=== PATIENT | female | born 1985 | race Caucasian/White ===

== ENCOUNTER 2017-04-03 06:46 | Emergency (ER) | payer BC, OTHER ==
[2017-04-03 06:54] VITALS: BP 134/63; PULSE 89; RESP 20; TEMP 97.7
[2017-04-03] MEDS ORDERED: ACET/COD 300 MG/30 MG STARTER PACK 6 TAB BTL PO STA (08:03)
--- NOTE | 2017-04-03 08:13 | ED ---
General Adult HPI - General Chief complaint: ENT Stated complaint: dental pain Time Seen by Provider: 04/03/17 07:30 Source: patient, RN notes reviewed Mode of arrival: ambulatory Limitations: no limitations - History of Present Illness Initial comments: Patient is a pleasant 31-year-old female presenting to the emergency department complaining of dental pain. Onset was yesterday. Symptoms have gradually worsened since that time. No fever. Patient has a known fractured tooth of her right upper molar. No recent injury. Patient has not seen a dentist recently. - Related Data Home Medications Medication Instructions Recorded Confirmed Ibuprofen [Motrin] 400 mg PO Q6HR PRN 04/03/17 04/03/17 Previous Rx's Medication Instructions Recorded Acetaminophen-Codeine 300-30mg 1 each PO Q4H PRN #8 tablet 04/03/17 [Tylenol #3] Penicillin V Potassium [Pen Vee K] 500 mg PO QID #40 tab 04/03/17 Allergies Allergy/AdvReac Type Severity Reaction Status Date / Time No Known Allergies Allergy Verified 04/03/17 07:12 Review of Systems ROS Statement: Those systems with pertinent positive or pertinent negative responses have been documented in the HPI. ROS Other: All systems not noted in ROS Statement are negative. Constitutional: Denies: fever Eyes: Denies: eye pain ENT: Reports: dental pain. Denies: ear pain Respiratory: Denies: cough Cardiovascular: Denies: chest pain Endocrine: Denies: fatigue Gastrointestinal: Denies: abdominal pain Genitourinary: Denies: dysuria Musculoskeletal: Denies: back pain Skin: Denies: rash Neurological: Denies: weakness Past Medical History Past Medical History: No Reported History History of Any Multi-Drug Resistant Organisms: MRSA Date of last positivie culture/infection: 2012 MDRO Source:: abd Past Surgical History: Section Additional Past Surgical History / Comment(s): liver biopsy Past Psychological History: No Psychological Hx Reported Smoking Status: Current every day smoker Past Alcohol Use History: None Reported Past Drug Use History: None Reported General Exam Limitations: no limitations General appearance: alert, in no apparent distress Head exam: Present: atraumatic Eye exam: Present: normal appearance, PERRL ENT exam: Present: normal oropharynx, other (Right upper posterior molar with fracture and tenderness. No definite swelling or definite abscess. No erythema.) Neck exam: Present: normal inspection Respiratory exam: Present: normal lung sounds bilaterally Cardiovascular Exam: Present: regular rate, normal rhythm Extremities exam: Present: normal inspection Neurological exam: Present: alert Psychiatric exam: Present: normal affect, normal mood Skin exam: Present: normal color Course Vital Signs 04/03/17 06:52 Temperature 97.7 F Pulse Rate 89 Respiratory 20 Rate Blood Pressure 134/63 O2 Sat by Pulse 100 Oximetry Disposition Clinical Impression: Dentalgia Disposition: HOME SELF-CARE Condition: Stable Instructions: Toothache (ED) Additional Instructions: Please follow-up with the dentist as soon as possible. Return for swelling, fevers, not tolerating liquids, difficulty breathing, worsening symptoms or other concerns. Prescriptions: Acetaminophen-Codeine 300-30mg [Tylenol #3] 1 each PO Q4H PRN #8 tablet PRN Reason: Pain Penicillin V Potassium [Pen Vee K] 500 mg PO QID #40 tab Referrals: Donald Brizuela DO [Primary Care Provider] - 1-2 days Time of Disposition: 08:14
== END 2017-04-03 08:27 | disposition home or self-care (01) ==
LOC: EC 06:46 → MERGE 06:46 → EC 08:27
DX: K08.89 Other specified disorders of teeth and supporting structures (principal); F17.200 Nicotine dependence, unspecified, uncomplicated
CPT/HCPCS: 99282

== ENCOUNTER 2020-06-14 18:32 | Emergency (ER) | payer BC, OTHER ==
[2020-06-14] MEDS ORDERED: LIDOCAINE 1% INJ 10MG/ML (20 ML MDV) SQ ONE (19:08)
[2020-06-14] MEDS ORDERED: DIPH,PERTUS(ACELL)TETVAC-LF 0.5 ML VIAL IM ONE (19:08)
[2020-06-14] MEDS ORDERED: ACET/COD 300 MG/30 MG STARTER PACK 6 TAB BTL PO STA (19:11)
[2020-06-14] MEDS ORDERED: BACITRACIN OINT 1 EACH PACKET TOPICAL ONE (19:57)
--- NOTE | 2020-06-14 20:07 | ED ---
General Adult HPI - General Chief complaint: Skin/Abscess/Foreign Body Stated complaint: Finger laceration Time Seen by Provider: 06/14/20 19:01 Source: patient Mode of arrival: ambulatory Limitations: no limitations - History of Present Illness Initial comments: 34-year-old female presents to emergency department this evening with complaints of laceration to her left thumb. Patient states she was attempting to separate frozen hamburger patties using a kitchen knife when it slipped and cut her thumb. Reports she felt dizzy and nauseous at the site of blood prior to arrival, but states those symptoms have since resolved. Denies difficulty with range of motion or sensation. Denies any other injuries. Patient denies any headache, neck pain, back pain, chest pain, shortness of breath,weakness, abdominal pain, vomiting, or difficulties with bowel movements or urination. - Related Data Home Medications Medication Instructions Recorded Confirmed Ibuprofen [Motrin] 400 mg PO Q6HR PRN 04/03/17 04/03/17 Previous Rx's Medication Instructions Recorded Acetaminophen-Codeine 300-30mg 1 each PO Q4H PRN #8 tablet 04/03/17 [Tylenol #3] Penicillin V Potassium [Pen Vee K] 500 mg PO QID #40 tab 04/03/17 Allergies Allergy/AdvReac Type Severity Reaction Status Date / Time No Known Allergies Allergy Verified 06/14/20 18:38 Review of Systems ROS Statement: Those systems with pertinent positive or pertinent negative responses have been documented in the HPI. ROS Other: All systems not noted in ROS Statement are negative. Past Medical History Past Medical History: No Reported History History of Any Multi-Drug Resistant Organisms: MRSA Date of last positivie culture/infection: 2012 MDRO Source:: abd Past Surgical History: Section Additional Past Surgical History / Comment(s): liver biopsy Past Psychological History: No Psychological Hx Reported Smoking Status: Current every day smoker Past Alcohol Use History: None Reported Past Drug Use History: None Reported General Exam Limitations: no limitations (Well-developed, well-nourished female in no acute distress. Initial temperature 97.8F, pulse 103, respirations 20, blood pressure 130/72, pulse ox 100% on room air) General appearance: alert, in no apparent distress Respiratory exam: Present: normal lung sounds bilaterally. Absent: respiratory distress, wheezes, rales, rhonchi, stridor Cardiovascular Exam: Present: regular rate, normal rhythm, normal heart sounds. Absent: systolic murmur, diastolic murmur, rubs, gallop, clicks Left Hand Wrist exam: Present: laceration (3.5cm linear laceration to the distal portion of the palmar surface of the left thumb; extends to border of nailbed but does not intrude) Neuro motor exam: Present: thumb opposition intact Vascular: Present: normal capillary refill, radial pulse, brachial pulse. Absent: vascular compromise Neurological exam: Present: alert, oriented X3, CN II-XII intact Psychiatric exam: Present: normal affect, normal mood Skin exam: Present: warm, dry, intact, normal color. Absent: rash Course Vital Signs 06/14/20 06/14/20 18:34 20:13 Temperature 97.8 F 98.0 F Pulse Rate 103 H 98 Respiratory 20 16 Rate Blood Pressure 138/72 137/91 O2 Sat by Pulse 100 98 Oximetry Procedures - Laceration Laceration #1 Consent Obtained: verbal consent Indication: laceration Site: hand (left thumb, palmar surface) Size (cm): 4 Description: linear Depth: simple, single layer Anesthetic Used: lidocaine 1% Anesthesia Technique: nerve block Amount (mls): 3 Pre-repair: wound explored, irrigated extensively Type of Sutures: nylon Size of Sutures: 5-0 Number of Sutures: 7 Technique: simple, interrupted Patient Tolerated Procedure: well Medical Decision Making - Medical Decision Making 34-year-old female presents with a 3.5 cm laceration on the distal left thumb, palmar surface extending around to the radial edge of the left thumbnail but not intruding on the nailbed. Distal sensation and active range of motion remain intact. Bleeding controlled prior to arrival. Last tetanus shot more than 7 years ago. Digital block to the left successfully anesthetized site for wound repair. 7 sutures placed; wound easily approximated. Bacitracin dressing applied and wound care instructions reviewed. Discussed suture removal in 7 days. Encouraged to follow-up with her primary care provider for recheck in 1-2 days. Instructed to return to the emergency department with any significant increased redness, foul smelling drainage from the wound, or development of fever. Patient verbalizes understanding and agrees with this plan. Disposition Clinical Impression: Laceration of thumb without damage to nail, Laceration of thumb, left Disposition: HOME SELF-CARE Condition: Good Instructions (If sedation given, give patient instructions): Care For Your Stitches (ED), Laceration (ED) Additional Instructions: Keep wound clean, dry, and covered for the first 48 hours. Daily dressing changes. Monitor for signs of infection including increased redness, foul smelling drainage, or fever. Sutures to be removed in 7 days. Follow-up with your family doctor for a recheck in the next 1-2 days. Return to the emergency Department with any new, worsening, or concerning symptoms. Is patient prescribed a controlled substance at d/c from ED?: No Referrals: Donald Brizuela DO [Primary Care Provider] - 1-2 days Time of Disposition: 20:00
[2020-06-14 20:14] VITALS: BP 137/91; PULSE 98; RESP 16; TEMP 98
== END 2020-06-14 20:14 | disposition home or self-care (01) ==
LOC: EC 18:32
DX: S61.012A Laceration without foreign body of left thumb without damage to nail, initial encounter (principal); F17.200 Nicotine dependence, unspecified, uncomplicated; Z23 Encounter for immunization; W26.0XXA Contact with knife, initial encounter; Y93.G3 Activity, cooking and baking; Y92.000 Kitchen of unspecified non-institutional (private) residence as the place of occurrence of the external cause; Z86.14 Personal history of Methicillin resistant Staphylococcus aureus infection
CPT/HCPCS: 90715; 99283; 90471; 12002; J2001

== ENCOUNTER 2020-12-28 08:01 | Day surgery (SDC) | payer OTHER ==
[2020-12-25 08:53] VITALS: BMI 28.2
[~2020-12-28 08:01] MED LIST: ACETAMINOPHEN TAB 500 MG TAB PO PRN; DEXAMETHASONE SOD PHOSPHATE 4 MG/ML 1 ML VIAL IV ONE; HEPARIN SODIUM,PORCINE/PF 5,000 UNIT/0.5 ML SYRINGE SQ PRN; LACTATED RINGERS 1,000 ML IV SCH; MIDAZOLAM 2 MG/2 ML VIAL IV PRN; ONDANSETRON 4 MG/2 ML VIAL IVP ONE; SCOPOLAMINE 1.5MG/72HR PATCH TRANSDERM ONE
--- NOTE | 2020-12-28 08:15 | P.GSHP ---
History of Present Illness H&P Date: 12/28/20 Chief Complaint: Right upper quadrant pain This a 35-year-old female who presents today for laparoscopic cholecystectomy. Patient underwent a right quadrant pain. She was found have gallstones. Past Medical History Past Medical History: GERD/Reflux Additional Past Medical History / Comment(s): Hiatal Hernia. History of Any Multi-Drug Resistant Organisms: MRSA Date of last positivie culture/infection: 2012 MDRO Source:: abd Past Surgical History: Section, Tubal Ligation Additional Past Surgical History / Comment(s): Liver biopsy, EGD. Past Anesthesia/Blood Transfusion Reactions: No Reported Reaction, Motion Sickness Past Psychological History: No Psychological Hx Reported Smoking Status: Current every day smoker Past Alcohol Use History: Occasional Additional Past Alcohol Use History / Comment(s): Has been smoking for 15 yrs, 3/4 PPD. Past Drug Use History: Marijuana Additional Drug Use History / Comment(s): Uses Marijuana once in awhile. Aware no use 24 hrs prior to procedure. - Past Family History Father Family Medical History: Cancer Additional Family Medical History / Comment(s): Lung Cancer. Medications and Allergies Home Medications Medication Instructions Recorded Confirmed Type Acetaminophen [Tylenol] 1,000 mg PO Q4-6H PRN 12/25/20 12/25/20 History Allergies Allergy/AdvReac Type Severity Reaction Status Date / Time No Known Allergies Allergy Verified 12/25/20 08:35 Surgical - Exam - General well developed, well nourished, no distress - Eyes PERRL - ENT normal pinna - Neck no masses - Respiratory normal expansion - Cardiovascular Rhythm: regular - Abdomen Abdomen: soft, non tender Assessment and Plan Assessment: Cholelithiasis Right quadrant pain We'll perform laparoscopic cholecystectomy
[2020-12-28] MEDS ORDERED: LIDOCAINE 1% (10MG/ML) FOR IV START INTRADERMA ONE (08:33)
[2020-12-28] MEDS ORDERED: fentaNYL (PF) 50 MCG/ML 2 ML AMP ONE (08:52)
[2020-12-28] MEDS ORDERED: MIDAZOLAM 2 MG/2 ML VIAL ONE (08:52)
[2020-12-28] MEDS ORDERED: GLYCOPYRROLATE 0.2 MG/ML 2 ML VIAL ONE (08:52)
[2020-12-28] MEDS ORDERED: LIDOCAINE 1% INJ 10MG/ML (20 ML MDV) ONE (08:52)
[2020-12-28] MEDS ORDERED: ROCURONIUM 10 MG/ML (5 ML VIAL) IV ONE (08:52)
[2020-12-28] MEDS ORDERED: SUCCINYLCHOLINE CHLORIDE 100 MG/5 ML SYR IV ONE (08:52)
[2020-12-28] MEDS ORDERED: PHENYLEPHRINE-0.9% NACL SYG 1,000 MCG/10 ML SYRINGE ONE (08:52)
[2020-12-28] MEDS ORDERED: NEOSTIGMINE 1 MG/ML 10 ML VIAL ONE (08:52)
[2020-12-28] MEDS ORDERED: PROPOFOL 10 MG/ML 20 ML VIAL IV ONE (08:52)
[2020-12-28] MEDS ORDERED: HYDROmorphone (PF) 1 MG/ML ONE (08:52)
[2020-12-28] MEDS ORDERED: BUPIVACAINE (PF) 0.25% 30 ML VIAL SQ ONE (09:23)
[2020-12-28 09:58] VITALS: TEMP 96.9
[2020-12-28] MEDS: HYDROmorphone 0.5 MG/0.5 ML SYRINGE IVP PRN ×3 (10:01→10:32)
--- NOTE | 2020-12-28 10:14 | P.OP ---
Date of Procedure: 12/28/20 Preoperative Diagnosis: Cholecystitis Postoperative Diagnosis: Cholecystitis Procedure(s) Performed: Laparoscopic cholecystectomy Anesthesia: ARLENE Surgeon: Kareem Carpenter Estimated Blood Loss (ml): 5 Pathology: other (Gallbladder) Condition: stable Disposition: PACU Description of Procedure: The patient was placed on the operating table. The patient received a general endotracheal tube anesthesia. The patients abdomen was prepped and draped in the usual sterile fashion. Through an infraumbilical stab incision, the fascia of the anterior abdominal wall was grasped with a pair of Kochers and then the Veress needle was placed in the peritoneal cavity. Position of the Veress needle was confirmed with positive drop test. The abdomen was then insufflated. After adequate insufflation, the 10 mm trocar was placed in the peritoneal cavity. Following this the laparoscope was placed in the peritoneal cavity. The patient was placed in the head-up, right side up position and then a 5 mm trocar was placed in the right lateral and right subcostal position under direct visualization. A 8 mm trocar was placed in the epigastric position. The gallbladder was grasped in the fundus and infundibulum. Traction on the gallbladder was placed in the lateral and the cephalad positions. The triangle of Calot was visualized.. The cystic duct was bluntly dissected until the union of the cystic duct and common bile duct was seen. A critical view of safety was achieved. The cystic duct was then divided and sealed with the Harmonic scissors. A PDS Endoloop was then placed throughout the cystic duct stump. The cystic artery divided and sealed with the Harmonic scissors. The gallbladder was then removed from the liver bed using Harmonic scissors. The gallbladder was then extracted through the epigastric port site. Operative field was checked for any bleeding spots and Harmonic scissors was used to coagulate the liver bed. The abdomen was irrigated. The trocars were removed. The skin was closed using interrupted 3-0 Vicryl suture. Dermabond dressing were applied. The patient tolerated the procedure well.
[2020-12-28] MEDS ORDERED: ONDANSETRON 4 MG/2 ML VIAL IVP ONE (10:17)
[2020-12-28] MEDS ORDERED: LACTATED RINGERS 1,000 ML IV ONE (10:20)
[2020-12-28 10:41] VITALS: RESP 16
[2020-12-28] MEDS ORDERED: oxyCODONE-APAP 5-325MG 1 EACH TAB ONE (10:48)
[2020-12-28] MEDS ORDERED: oxyCODONE-APAP 5-325MG 1 EACH TAB PO ONE (10:50)
[2020-12-28 10:59] VITALS: BP 136/84; PULSE 87
== END 2020-12-28 11:35 | disposition home or self-care (01) ==
LOC: OR 08:01
PROVIDERS: ATTEND Surgery
DX: K80.10 Calculus of gallbladder with chronic cholecystitis without obstruction (principal); K21.9 Gastro-esophageal reflux disease without esophagitis; K44.9 Diaphragmatic hernia without obstruction or gangrene; Z86.14 Personal history of Methicillin resistant Staphylococcus aureus infection; Z98.891 History of uterine scar from previous surgery; Z98.51 Tubal ligation status; K76.9 Liver disease, unspecified; F17.210 Nicotine dependence, cigarettes, uncomplicated; Z80.1 Family history of malignant neoplasm of trachea, bronchus and lung
CPT/HCPCS: 81025; 88304; 47562; J2250; J1100; J2710; J0690; J2405; J2001; J3010; J1170 ×2; J2370; J0330; J2704; J1644

== ENCOUNTER → 2021-01-02 | Outpatient (CLI) | payer OTHER ==
[2021-01-02 23:37] LABS: HCT 44.5 % (37.2-46.3); HGB 15.1 g/dL (12.0-15.0); MCH 31.7 pg (27.0-32.0); MCHC 33.9 g/dL (32.0-37.0); MCV 93.3 fL (80.0-97.0); Mean Platelet Volume 11.3 fL (9.5-12.2); Platelet Count 478 X 10*3/uL (140-440); RBC 4.77 X 10*6/uL (4.10-5.20); RDW 14.8 % (11.5-14.5); WBC 15.84 X 10*3/uL (4.50-10.00)
[2021-01-03 16:56] LABS: African American GFR (CKD) 75.3 (60.0-200.0); Albumin 4.6 g/dL (3.80-4.90); Albumin/Globulin Ratio 1.59 (1.60-3.17); Anion Gap 27.1 mmol/L (4.00-12.00); BUN/Creat Ratio 34.55 Ratio (12.00-20.00); Calcium 9.1 mg/dL (8.7-10.3); Carbon Dioxide 15.9 mmol/L (21.6-31.8); Globulin 2.9 g/dL (1.6-3.3); Potassium 3.9 mmol/L (3.5-5.5); Total Protein 7.5 g/dL (6.2-8.2)
== END | disposition home or self-care (01) ==
LOC: LABWHC1 15:25
PROVIDERS: ATTEND Surgery
DX: R10.9 Unspecified abdominal pain (principal)
CPT/HCPCS: 36415; 80053; 85027

== ENCOUNTER → 2021-01-07 | Outpatient (CLI) | payer OTHER ==
[2021-01-07 19:07] LABS: HCT 36.9 % (37.2-46.3); HGB 12.7 g/dL (12.0-15.0); MCH 31.6 pg (27.0-32.0); MCHC 34.4 g/dL (32.0-37.0); MCV 91.8 fL (80.0-97.0); Mean Platelet Volume 10.6 fL (9.5-12.2); Platelet Count 726 X 10*3/uL (140-440); RBC 4.02 X 10*6/uL (4.10-5.20); RDW 14.7 % (11.5-14.5); WBC 18.46 X 10*3/uL (4.50-10.00)
[2021-01-07 22:12] LABS: African American GFR (CKD) 130.1 (60.0-200.0); Albumin/Globulin Ratio 1.67 (1.60-3.17); BUN/Creat Ratio 24.29 Ratio (12.00-20.00); Globulin 2.4 g/dL (1.6-3.3); Non-African American GFR(CKD) 112.3 (60.0-200.0); Potassium 4.2 mmol/L (3.5-5.5); Total Bilirubin 3.7 mg/dL (0.2-1.2); Total Protein 6.4 g/dL (6.2-8.2)
== END | disposition home or self-care (01) ==
LOC: LABWHC1 13:09
PROVIDERS: ATTEND Surgery
DX: K80.50 Calculus of bile duct without cholangitis or cholecystitis without obstruction (principal)
CPT/HCPCS: 36415; 80053; 85027

== ENCOUNTER → 2021-01-16 | Outpatient (CLI) | payer OTHER ==
[2021-01-16 20:45] LABS: HCT 35.7 % (37.2-46.3); HGB 10.8 g/dL (12.0-15.0); MCH 30.3 pg (27.0-32.0); MCHC 30.3 g/dL (32.0-37.0); MCV 100.3 fL (80.0-97.0); Mean Platelet Volume 9.7 fL (9.5-12.2); Platelet Count 823 X 10*3/uL (140-440); RBC 3.56 X 10*6/uL (4.10-5.20); RDW 14.7 % (11.5-14.5); WBC 14.51 X 10*3/uL (4.50-10.00)
== END | disposition home or self-care (01) ==
LOC: LABWHC1 11:18
PROVIDERS: ATTEND Surgery
DX: K80.50 Calculus of bile duct without cholangitis or cholecystitis without obstruction (principal)
CPT/HCPCS: 36415; 85027

== ENCOUNTER → 2021-01-21 | Outpatient (CLI) | payer OTHER ==
[2021-01-21 19:15] LABS: HGB 10.8 g/dL (12.0-15.0); MCH 30.3 pg (27.0-32.0); MCHC 30.9 g/dL (32.0-37.0); Mean Platelet Volume 10.2 fL (9.5-12.2); Platelet Count 675 X 10*3/uL (140-440); RBC 3.57 X 10*6/uL (4.10-5.20); RDW 14.9 % (11.5-14.5); WBC 12.27 X 10*3/uL (4.50-10.00)
[2021-01-21 19:51] LABS: African American GFR (CKD) 136.9 (60.0-200.0); Albumin 3.6 g/dL (3.80-4.90); Albumin/Globulin Ratio 1.33 (1.60-3.17); Anion Gap 7.6 mmol/L (4.00-12.00); BUN/Creat Ratio 13.33 Ratio (12.00-20.00); Calcium 8.7 mg/dL (8.7-10.3); Carbon Dioxide 26.4 mmol/L (21.6-31.8); Globulin 2.7 g/dL (1.6-3.3); Non-African American GFR(CKD) 118.1 (60.0-200.0); Potassium 4.4 mmol/L (3.5-5.5); Total Bilirubin 0.9 mg/dL (0.2-1.2); Total Protein 6.3 g/dL (6.2-8.2)
== END | disposition home or self-care (01) ==
LOC: LABWHC1 14:11
PROVIDERS: ATTEND Surgery
DX: K80.50 Calculus of bile duct without cholangitis or cholecystitis without obstruction (principal)
CPT/HCPCS: 36415; 80053; 85027

== ENCOUNTER 2021-01-29 10:43 | Inpatient (IN) | payer OTHER ==
[2021-01-29 12:58] LABS: Anisocytosis Slight; Basophils # (A) 0.1 k/uL (0-0.2); Basophils % (A) 0 %; Eosinophils # (A) 0.3 k/uL (0-0.7); Eosinophils % (A) 2 %; HCT 35.3 % (34.0-46.0); HGB 10.9 gm/dL (11.4-16.0); Hypochromasia Moderate; Lymphocytes # (A) 1.6 k/uL (1.0-4.8); Lymphocytes % (A) 11 %; MCH 28.7 pg (25.0-35.0); MCHC 30.9 g/dL (31.0-37.0); MCV 92.7 fL (80.0-100.0); Mean Platelet Volume 7.7; Monocytes # (A) 0.7 k/uL (0-1.0); Monocytes % (A) 5 %; Neutrophils # (A) 11.4 k/uL (1.3-7.7); Neutrophils % (A) 80 %; RBC 3.81 m/uL (3.80-5.40); RDW 16.1 % (11.5-15.5); WBC 14.1 k/uL (3.8-10.6)
[2021-01-29 13:00] LABS: Platelet Count 1038 k/uL (150-450)
[2021-01-29 13:16] LABS: ALT 29 U/L (4-34); AST 51 U/L (14-36); African American GFR (CKD) >90 (>60 ml/min/1.73 sqM); Albumin 3.7 g/dL (3.5-5.0); Alkaline Phosphatase 285 U/L (38-126); Amylase 39 U/L (30-110); Anion Gap 12 mmol/L; Blood Urea Nitrogen 10 mg/dL (7-17); Calcium 9.8 mg/dL (8.4-10.2); Carbon Dioxide 24 mmol/L (22-30); Chloride 102 mmol/L (98-107); Glucose 100 mg/dL (74-99); Lipase 45 U/L (23-300); Non-African American GFR(CKD) >90 (>60 ml/min/1.73 sqM); Potassium 4.8 mmol/L (3.5-5.1); Sodium 138 mmol/L (137-145); Total Bilirubin 0.8 mg/dL (0.2-1.3); Total Protein 7.3 g/dL (6.3-8.2)
[2021-01-29] MEDS ORDERED: ONDANSETRON 4 MG/2 ML VIAL IVP STA (13:54)
[2021-01-29] MEDS ORDERED: MORPHINE SULFATE 4 MG/ML SYRINGE IVP STA (13:54)
[2021-01-29 13:59] LABS: Amorphous Sediment,Urine Many /hpf; Appearance,Urine Turbid (Clear); Bacteria,Urine Occasional /hpf; Bilirubin,Urine 1+ (Negative); Blood,Urine Moderate (Negative); Color,Urine Light Brown; Glucose,Urine (UA) Negative (Negative); Ketones,Urine Negative (Negative); Leukocyte Esterase,Urine Small (Negative); Mucus,Urine Many /hpf; Nitrite,Urine Negative (Negative); Protein,Urine 1+ (Negative); RBC,Urine 3 /hpf (0-5); Specific Gravity,Urine 1.042 (1.001-1.035); Squamous Epithelial Cell,Urine 3 /hpf (0-4); WBC,Urine 5 /hpf (0-5)
--- NOTE | 2021-01-29 14:39 | ED ---
General Adult HPI - General Chief complaint: Back Pain/Injury Stated complaint: post galbladder surgery pain Time Seen by Provider: 01/29/21 13:36 Source: patient, RN notes reviewed Mode of arrival: ambulatory Limitations: no limitations - History of Present Illness Initial comments: 35-year-old female with a past medical history of GERD, hiatal hernia, tubal ligation, cholecystectomy on December 28 presents to the emergency room for a chief complaint of right back and right abdominal pain. Patient reports this has been ongoing since her surgery. States that it seems to be worsening. Patient reports that she has been seeing her surgeon for this who was initially was concerned she may have a stone in the ducts however her lab work improved in the no longer felt this was the case. Patient states throughout the weekend the pain worsened to the point where she was prompted to come to the emergency room. She denies nausea vomiting diarrhea.Patient has no other complaints at this time including shortness of breath, chest pain, nausea or vomiting, headache, or visual changes. - Related Data Home Medications Medication Instructions Recorded Confirmed Acetaminophen Tab [Tylenol Tab] 1,000 mg PO Q6H PRN 01/29/21 01/29/21 Wheat Dextrin [Benefiber] 2 tsp PO HS 01/29/21 01/29/21 Allergies Allergy/AdvReac Type Severity Reaction Status Date / Time codeine AdvReac Nausea & Verified 01/29/21 17:01 Vomiting Review of Systems ROS Statement: Those systems with pertinent positive or pertinent negative responses have been documented in the HPI. ROS Other: All systems not noted in ROS Statement are negative. Past Medical History Past Medical History: GERD/Reflux Additional Past Medical History / Comment(s): Hiatal Hernia. History of Any Multi-Drug Resistant Organisms: MRSA Date of last positivie culture/infection: 2012 MDRO Source:: abd Past Surgical History: Section, Cholecystectomy, Tubal Ligation Additional Past Surgical History / Comment(s): Liver biopsy, EGD. Past Anesthesia/Blood Transfusion Reactions: No Reported Reaction, Motion Sickness Past Psychological History: No Psychological Hx Reported Smoking Status: Current every day smoker Past Alcohol Use History: Occasional Past Drug Use History: Marijuana - Past Family History Father Family Medical History: Cancer Additional Family Medical History / Comment(s): Lung Cancer. General Exam Limitations: no limitations General appearance: alert, in no apparent distress Head exam: Present: atraumatic, normocephalic, normal inspection Eye exam: Present: normal appearance, PERRL, EOMI. Absent: scleral icterus, co njunctival injection, periorbital swelling ENT exam: Present: normal exam, mucous membranes moist Neck exam: Present: normal inspection, full ROM. Absent: tenderness, meningismus, lymphadenopathy Respiratory exam: Present: normal lung sounds bilaterally. Absent: respiratory distress, wheezes, rales, rhonchi, stridor Cardiovascular Exam: Present: regular rate, normal rhythm, normal heart sounds. Absent: systolic murmur, diastolic murmur, rubs, gallop, clicks GI/Abdominal exam: Present: soft, tenderness (RLQ, RUQ), normal bowel sounds. Absent: distended, guarding, rebound, rigid Back exam: Present: CVA tenderness (R) Course Vital Signs 01/29/21 01/29/21 11:33 13:06 Temperature 98.1 F Pulse Rate 120 H 116 H Respiratory 16 16 Rate Blood Pressure 106/67 123/75 O2 Sat by Pulse 98 96 Oximetry Medical Decision Making - Medical Decision Making Vitals are stable. Patient cardiac likely secondary to pain. CBC does show leukocytosis. This also reveals significant thrombocytopenia of 1038. I did speak with Orquidea from hematology who will see the patient either inpatient or outpatient depending on her course. CMP does show an elevated alkaline phosphatase of 285 and AST of 51. Otherwise unremarkable. Bilirubin is normal. Urinalysis unremarkable. Patient has a history of tubal ligation. CT abdomen and pelvis shows likely biloma, sub-capsular extension, abnormal collection within the pelvis, considering capsulated bile leak. Case discussed with Dr. Carpenter who will admit patient. He does request HIDA scan, Zosyn, a.m. labs, and after midnight, and consultation to [facility]. - Lab Data Result diagrams: 01/29/21 12:24 01/29/21 12:24 Lab Results 01/29/21 01/29/21 01/29/21 Range/Units 12:20 12:24 12:24 WBC (3.8-10.6) k/uL RBC (3.80-5.40) m/uL Hgb (11.4-16.0) gm/dL Hct (34.0-46.0) % MCV (80.0-100.0) fL MCH (25.0-35.0) pg MCHC (31.0-37.0) g/dL RDW (11.5-15.5) % Plt Count (150-450) k/uL MPV Neutrophils % % Lymphocytes % % Monocytes % % Eosinophils % % Basophils % % Neutrophils # (1.3-7.7) k/uL Lymphocytes # (1.0-4.8) k/uL Monocytes # (0-1.0) k/uL Eosinophils # (0-0.7) k/uL Basophils # (0-0.2) k/uL Hypochromasia Anisocytosis PT 10.4 (9.0-12.0) sec INR 1.0 (<1.2) APTT 24.4 (22.0-30.0) sec Sodium 138 (137-145) mmol/L Potassium 4.8 (3.5-5.1) mmol/L Chloride 102 (98-107) mmol/L Carbon Dioxide 24 (22-30) mmol/L Anion Gap 12 mmol/L BUN 10 (7-17) mg/dL Creatinine 0.52 (0.52-1.04) mg/dL Est GFR (CKD-EPI)AfAm >90 (>60 ml/min/1.73 sqM) Est GFR (CKD-EPI)NonAf >90 (>60 ml/min/1.73 sqM) Glucose 100 H (74-99) mg/dL Calcium 9.8 (8.4-10.2) mg/dL Total Bilirubin 0.8 (0.2-1.3) mg/dL AST 51 H (14-36) U/L ALT 29 (4-34) U/L Alkaline Phosphatase 285 H (38-126) U/L Total Protein 7.3 (6.3-8.2) g/dL Albumin 3.7 (3.5-5.0) g/dL Amylase 39 (30-110) U/L Lipase 45 (23-300) U/L Urine Color Light Brown Urine Appearance Turbid H (Clear) Urine pH 6.0 (5.0-8.0) Ur Specific [place] 1.042 H (1.001-1.035) Urine Protein 1+ H (Negative) Urine Glucose (UA) Negative (Negative) Urine Ketones Negative (Negative) Urine Blood Moderate H (Negative) Urine Nitrite Negative (Negative) Urine Bilirubin 1+ H (Negative) Urine Urobilinogen 3.0 (<2.0) mg/dL Ur Leukocyte Esterase Small H (Negative) Urine RBC 3 (0-5) /hpf Urine WBC 5 (0-5) /hpf Ur Squamous Epith Cells 3 (0-4) /hpf Amorphous Sediment Many H (None) /hpf Urine Bacteria Occasional H (None) /hpf Urine Mucus Many H (None) /hpf Urine HCG, Qual (Not Detectd) 01/29/21 01/29/21 Range/Units 12:24 12:24 WBC 14.1 H (3.8-10.6) k/uL RBC 3.81 (3.80-5.40) m/uL Hgb 10.9 L (11.4-16.0) gm/dL Hct 35.3 (34.0-46.0) % MCV 92.7 (80.0-100.0) fL MCH 28.7 (25.0-35.0) pg MCHC 30.9 L (31.0-37.0) g/dL RDW 16.1 H (11.5-15.5) % Plt Count 1038 H* (150-450) k/uL MPV 7.7 Neutrophils % 80 % Lymphocytes % 11 % Monocytes % 5 % Eosinophils % 2 % Basophils % 0 % Neutrophils # 11.4 H (1.3-7.7) k/uL Lymphocytes # 1.6 (1.0-4.8) k/uL Monocytes # 0.7 (0-1.0) k/uL Eosinophils # 0.3 (0-0.7) k/uL Basophils # 0.1 (0-0.2) k/uL Hypochromasia Moderate Anisocytosis Slight PT (9.0-12.0) sec INR (<1.2) APTT (22.0-30.0) sec Sodium (137-145) mmol/L Potassium (3.5-5.1) mmol/L Chloride (98-107) mmol/L Carbon Dioxide (22-30) mmol/L Anion Gap mmol/L BUN (7-17) mg/dL Creatinine (0.52-1.04) mg/dL Est GFR (CKD-EPI)AfAm (>60 ml/min/1.73 sqM) Est GFR (CKD-EPI)NonAf (>60 ml/min/1.73 sqM) Glucose (74-99) mg/dL Calcium (8.4-10.2) mg/dL Total Bilirubin (0.2-1.3) mg/dL AST (14-36) U/L ALT (4-34) U/L Alkaline Phosphatase (38-126) U/L Total Protein (6.3-8.2) g/dL Albumin (3.5-5.0) g/dL Amylase (30-110) U/L Lipase (23-300) U/L Urine Color Urine Appearance (Clear) Urine pH (5.0-8.0) Ur Specific [place] (1.001-1.035) Urine Protein (Negative) Urine Glucose (UA) (Negative) Urine Ketones (Negative) Urine Blood (Negative) Urine Nitrite (Negative) Urine Bilirubin (Negative) Urine Urobilinogen (<2.0) mg/dL Ur Leukocyte Esterase (Negative) Urine RBC (0-5) /hpf Urine WBC (0-5) /hpf Ur Squamous Epith Cells (0-4) /hpf Amorphous Sediment (None) /hpf Urine Bacteria (None) /hpf Urine Mucus (None) /hpf Urine HCG, Qual Not Detected (Not Detectd) Disposition Clinical Impression: Abdominal pain, Leukocytosis, Thrombocytosis, Bile leak, postoperative Disposition: ADMITTED IP TO THIS HOSP Is patient prescribed a controlled substance at d/c from ED?: No Referrals: None,Stated [Primary Care Provider] - 1-2 days Time of Disposition: 17:55
[2021-01-29 14:42] LABS: Partial Thromboplastin Time 24.4 sec (22.0-30.0); Prothrombin Time 10.4 sec (9.0-12.0)
--- NOTE | 2021-01-29 15:57 | CT ---
EXAMINATION TYPE: CT abdomen pelvis w con DATE OF EXAM: 01/29/2021 COMPARISON: None HISTORY: Right sided pain post op Heather in November 2020. CT DLP: 1110.3 mGycm Automated exposure control for dose reduction was used. TECHNIQUE: Helical acquisition of images from the lung bases through the pelvis have been completed. CONTRAST: Performed without Oral Contrast and with IV Contrast, patient injected with 100 mL of Isovue 300. FINDINGS: Within the pelvis there is a fluid collection 26 times the region of the cul-de-sac over th e uterus and superior to the bladder measuring approximately 19 cm in cephalad to caudal dimension by 18 cm in transverse dimension by 10 cm in AP dimension LUNG BASES: Basilar atelectatic changes are present, correlate to exclude pneumonia. AORTA: No significant abnormality is appreciated. LIVER/GB: There is a subcapsular fluid collection along anterior margin of the right lobe liver measu ring approximately 11 cm in transverse dimension by 19 cm in cephalad to caudal dimension by 8 cm in AP dimension extending from the level of the dome of the liver inferiorly to the inferior margin and extends laterally to the right lobe of the liver. At the level of the cholecystectomy. Some abnormal thickening of the cholecystectomy bed, shaggy appearance. PANCREAS: No significant abnormality is seen. SPLEEN: No significant abnormality is seen. ADRENALS: Right adrenal soft tissue mass measures approximately 2.2 cm.. KIDNEYS: No significant abnormality is seen. REPRODUCTIVE ORGANS: No significant abnormality is seen BOWEL: No significant abnormality is seen. FREE AIR: No Free Air visible. ASCITES: None visible. PELVIC ADENOPATHY: None visualized. RETROPERITONEAL ADENOPATHY: No Retroperitoneal Adenopathy visible. URINARY BLADDER: No significant abnormality is seen. OSSEOUS STRUCTURES: No significant abnormality is seen. IMPRESSION: FINDINGS LIKELY REPRESENT BILOMA, SUBCAPSULAR EXTENSION, ABNORMAL COLLECTION WITHIN THE PELVIS CONSID ER ENCAPSULATED BILE LEAK, GENERAL SURGERY CONSULT. Additional findings above.
--- NOTE | 2021-01-29 16:31 | XR ---
EXAMINATION TYPE: XR chest 2V DATE OF EXAM: 01/29/2021 COMPARISON: CT same day HISTORY: Shoulder pain TECHNIQUE: Frontal and lateral views of the chest are obtained. FINDINGS: Patchy density present at the right lung base. No pneumothorax or pleural effusion is evid ent. Heart and mediastinal silhouette is within normal limits. IMPRESSION: Basilar atelectasis, correlate to exclude pneumonia.
[2021-01-29] MEDS ORDERED: HYDROmorphone 0.5 MG/0.5 ML SYRINGE IVP STA (16:52)
[2021-01-29] MEDS ORDERED: NALOXONE 0.4 MG/ML 1 ML VIAL IV PRN (17:55)
[2021-01-29] MEDS ORDERED: PIPERACILLIN-TAZOBACTAM 3.375 GM in SODIUM CHLORIDE 0.9% 100 ML IVPB STA (17:58)
[2021-01-29] MEDS ORDERED: LORazepam 2 MG/ML INJ IV STA (18:21)
[2021-01-29] MEDS: SODIUM CHLORIDE 0.9% 1,000 ML IV SCH (19:02)
[2021-01-29] MEDS: HYDROmorphone 0.5 MG/0.5 ML SYRINGE IVP PRN (21:46)
[2021-01-29] MEDS: KETOROLAC 15 MG/ML 1 ML VIAL IVP SCH (23:01)
[2021-01-29] MEDS: NICOTINE 14MG/24HR PATCH TRANSDERM SCH (23:29)
[2021-01-29] MEDS: PIPERACILLIN-TAZOBACTAM 3.375 GM in SODIUM CHLORIDE 0.9% 100 ML IVPB SCH (23:31)
[2021-01-30] MEDS: HYDROmorphone 0.5 MG/0.5 ML SYRINGE IVP PRN ×4 (01:44→15:34)
[2021-01-30] MEDS: SODIUM CHLORIDE 0.9% 1,000 ML IV SCH ×3 (05:07→18:18)
[2021-01-30] MEDS: KETOROLAC 15 MG/ML 1 ML VIAL IVP SCH ×4 (05:57→23:51)
--- NOTE | 2021-01-30 06:36 | P.CONS ---
History of Present Illness - Reason for Consult Consult date: 01/30/21 Thrombocytosis Requesting physician: Dakota Jones - Chief Complaint Abdominal Pain - History of Present Illness Laurie is a pleasant 35 year old patient without significant medical history who presents to emergency with abdominal pain. She recently underwent cholecyste ctomy. CBC revealed increased WBC and Platelet count >999 therefore we have been asked to further evaluate Review of Systems All systems: negative Constitutional: Reports as per HPI Past Medical History Past Medical History: GERD/Reflux Additional Past Medical History / Comment(s): Hiatal Hernia. History of Any Multi-Drug Resistant Organisms: MRSA Year Discovered:: 2012 MDRO Source:: abd Past Surgical History: Section, Cholecystectomy, Tubal Ligation Additional Past Surgical History / Comment(s): Liver biopsy, EGD. 2 c-sections Past Anesthesia/Blood Transfusion Reactions: No Reported Reaction, Motion Sic kness Past Psychological History: No Psychological Hx Reported Smoking Status: Current every day smoker Past Alcohol Use History: Occasional Additional Past Alcohol Use History / Comment(s): Has been smoking for 15 yrs, 3/4 PPD. Past Drug Use History: Marijuana Additional Drug Use History / Comment(s): Uses Marijuana once in awhile. Aware no use 24 hrs prior to procedure. - Past Family History Father Family Medical History: Cancer Additional Family Medical History / Comment(s): Lung Cancer Medications and Allergies Home Medications Medication Instructions Recorded Confirmed Type Acetaminophen Tab [Tylenol Tab] 1,000 mg PO Q6H PRN 01/29/21 01/29/21 History Wheat Dextrin [Benefiber] 2 tsp PO HS 01/29/21 01/29/21 History Allergies Allergy/AdvReac Type Severity Reaction Status Date / Time codeine AdvReac Nausea & Verified 01/29/21 17:01 Vomiting Physical Exam Vitals: Vital Signs Temp Pulse Pulse Resp BP BP Pulse Ox 01/30/21 05:02 98.4 F 102 H 16 113/79 96 01/29/21 23:07 98.3 F 107 H 16 118/82 98 01/29/21 22:27 102 H 18 110/70 96 01/29/21 13:06 116 H 16 123/75 96 01/29/21 11:33 98.1 F 120 H 16 106/67 98 Intake and Output 01/29/21 01/29/21 01/30/21 14:59 22:59 06:59 Intake Total 750 Balance 750 Intake: Intake, IV Titration 750 Amount Piperacillin-Tazobactam 3 100 .375 gm In Sodium Chloride 0.9% 100 ml @ 25 mls/hr IVPB Q8HR [facility] Rx# :[id number] Sodium Chloride 0.9% 1, 650 000 ml @ 130 mls/hr IV . Q7H42M [facility] Rx#:[id number] Other: Weight 74.525 kg 74.525 kg - Constitutional General appearance: cooperative, no acute distress - EENT Eyes: EOMI, PERRLA ENT: NA/AT, normal oropharynx - Respiratory Respiratory: bilateral: CTA - Cardiovascular Rhythm: regular - Gastrointestinal General gastrointestinal: normal bowel sounds, soft, tenderness - Integumentary Integumentary: pale - Neurologic Neurologic: CNII-XII intact - Musculoskeletal Musculoskeletal: generalized weakness, strength equal bilaterally - Psychiatric Psychiatric: A&O x's 3, appropriate affect, intact judgment & insight Results CBC & Chem 7: 01/30/21 07:00 01/30/21 07:00 Labs: Abnormal Lab Results - Last 24 Hours (Table) 01/29/21 01/29/21 01/29/21 Range/Units 12:24 12:24 12:24 WBC 14.1 H (3.8-10.6) k/uL Hgb 10.9 L (11.4-16.0) gm/dL MCHC 30.9 L (31.0-37.0) g/dL RDW 16.1 H (11.5-15.5) % Plt Count 1038 H* (150-450) k/uL Neutrophils # 11.4 H (1.3-7.7) k/uL Glucose 100 H (74-99) mg/dL AST 51 H (14-36) U/L Alkaline Phosphatase 285 H (38-126) U/L Urine Appearance Turbid H (Clear) Ur Specific [place] 1.042 H (1.001-1.035) Urine Protein 1+ H (Negative) Urine Blood Moderate H (Negative) Urine Bilirubin 1+ H (Negative) Ur Leukocyte Esterase Small H (Negative) Amorphous Sediment Many H (None) /hpf Urine Bacteria Occasional H (None) /hpf Urine Mucus Many H (None) /hpf CT scan - abdomen: report reviewed CT scan - pelvis: report reviewed Assessment and Plan (1) Abdominal pain Current Visit: Yes Status: Acute Code(s): R10.9 - UNSPECIFIED ABDOMINAL PAIN SNOMED Code(s): 53344441 (2) Bile leak, postoperative Current Visit: Yes Status: Acute Code(s): K91.89 - OTH POSTPROCEDURAL COMPLICATIONS AND DISORDERS OF DGSTV SYS; K83.8 - OTHER SPECIFIED DISEASES OF BILIARY TRACT SNOMED Code(s): 550523140 (3) Leukocytosis Current Visit: Yes Status: Acute Code(s): D72.829 - ELEVATED WHITE BLOOD CELL COUNT, UNSPECIFIED SNOMED Code(s): 273020633 (4) Thrombocytosis Current Visit: Yes Status: Acute Code(s): D47.3 - ESSENTIAL (HEMORRHAGIC) THROMBOCYTHEMIA SNOMED Code(s): 7521974 Plan: Thrombocytosis is reactive to multiple reasons: - Post op inflammation, Blood loss anemia (post operative and menses) - This should recover once acute inflammation is recovered - Check and replace iron studies if needed Leukocytosis: - Reactive Physician attest: I have completed the full history and physical and developed the above impression and plan, agree with dictation, dictated as a ascribe
[2021-01-30 07:18] LABS: Anisocytosis Slight; Basophils # (A) 0.1 k/uL (0-0.2); Basophils % (A) 1 %; Eosinophils # (A) 0.2 k/uL (0-0.7); Eosinophils % (A) 2 %; HCT 30.4 % (34.0-46.0); Hypochromasia Moderate; Lymphocytes # (A) 1.6 k/uL (1.0-4.8); Lymphocytes % (A) 16 %; MCH 27.9 pg (25.0-35.0); Mean Platelet Volume 7.4; Monocytes # (A) 0.8 k/uL (0-1.0); Monocytes % (A) 8 %; Neutrophils # (A) 7.5 k/uL (1.3-7.7); Neutrophils % (A) 73 %; Platelet Count 791 k/uL (150-450); RBC 3.27 m/uL (3.80-5.40); RDW 16.6 % (11.5-15.5); WBC 10.3 k/uL (3.8-10.6)
[2021-01-30 07:20] LABS: Reticulocyte % 1.3 % (0.5-2.0)
[2021-01-30 07:26] LABS: HGB 9.1 gm/dL (11.4-16.0)
[2021-01-30 07:28] LABS: ALT 20 U/L (4-34); AST 31 U/L (14-36); African American GFR (CKD) >90 (>60 ml/min/1.73 sqM); Albumin 2.8 g/dL (3.5-5.0); Alkaline Phosphatase 199 U/L (38-126); Anion Gap 7 mmol/L; Blood Urea Nitrogen 10 mg/dL (7-17); Calcium 8.4 mg/dL (8.4-10.2); Carbon Dioxide 27 mmol/L (22-30); Chloride 102 mmol/L (98-107); Globulin 2.9 g/dL; Glucose 92 mg/dL (74-99); Non-African American GFR(CKD) >90 (>60 ml/min/1.73 sqM); Potassium 3.7 mmol/L (3.5-5.1); Sodium 136 mmol/L (137-145); Total Bilirubin 0.6 mg/dL (0.2-1.3); Total Protein 5.7 g/dL (6.3-8.2)
[2021-01-30] MEDS: PIPERACILLIN-TAZOBACTAM 3.375 GM in SODIUM CHLORIDE 0.9% 100 ML IVPB SCH ×3 (08:40→23:49)
[2021-01-30] MEDS: NICOTINE 14MG/24HR PATCH TRANSDERM SCH (08:41)
--- NOTE | 2021-01-30 09:53 | NM ---
EXAMINATION TYPE: NM hepatobiliary wo EF DATE OF EXAM: 01/30/2021 COMPARISON: CT abdomen and pelvis January 29, 2021. Prior nuclear medicine HIDA scan February 04, 2016 HISTORY: Cholecystectomy December 28 with persistent pain. Abnormal recent CT. TECHNIQUE: After the intravenous administration of 4.7 mCi Tc 99m Mebrofenin hepatobiliary scintigrap hy is performed. Immediate images post injection. FINDINGS: There is initial accumulation of tracer by the liver more prominent on the left versus right due to a nterior thin-walled elongated cyst or possibly subcapsular fluid over the right hepatic lobe extendin g inferiorly. The gallbladder is surgically absent. The small bowel activity is noted within 20 min utes. There is a small focus of abnormal radiotracer uptake just to the left of the biliary confluenc e of uncertain etiology. This could reflect focal central left-sided biliary dilatation, does not kalee ear to correspond to the more central fluid-filled structure near mary hepatis on CT which is just t o the right of the common bile duct. This eventually empties. Delayed phase images however show suspi cious curvilinear extension to the right side and this C shape extending superiorly appears to correl ate with the suspicious location of the surrounding fluid collection. Delayed phase images past 60 mi nutes not performed. IMPRESSION: Suboptimal study. Probable contained slow biliary leak extending superiorly along right a spect of the liver seen best towards end of study.
[2021-01-30 12:08] LABS: % Iron Saturation 5.13 (12.00-45.00); Ferritin 365.1 ng/mL (10.0-291.0); Iron 10 ug/dL (50-170); Total Iron Binding Capacity 195 ug/dL (228-460)
--- NOTE | 2021-01-30 13:46 | P.GSHP ---
History of Present Illness H&P Date: 01/30/21 CHIEF COMPLAINT: Abdominal pain HISTORY OF PRESENT ILLNESS: This is a 35-year-old female in with a known history of laparoscopic cholecystectomy on December [address] shea. She also has a history of nicotine dependence, GERD and hiatal hernia. Patient complains of having right upper quadrant pain since her surgery. She reports the pain radiating up into the right shoulder. She did have 2 episodes of vomiting with the last couple of days. She is having regular bowel movements. She denies any fever or chills or sweats. She had a computed tomography scan of the abdomen and pelvis with findings likely representing biloma, subcapsular extension, abnormal collection within the pelvis consider encapsulated bile leak. Patient's HIDA Scan shows probable contained slow biliary leak extending superiorly along the right aspect of the liver seen best towards the end of the study. GI services on consult. They've scheduled patient for ERCP with possible stent placement tomorrow. Patient's pain is controlled and did tolerate a regular diet this morning. PAST MEDICAL HISTORY: See list. PAST SURGICAL HISTORY: See list. MEDICATIONS: See list. ALLERGIES: See list. SOCIAL HISTORY: No illicit drug use. REVIEW OF SYSTEMS: CONSTITUTIONAL: Denies fever or chills. HEENT: Denies blurred vision, vision changes, or eye pain. Denies hemoptysis CARDIOVASCULAR: Denies chest pain or pressure. RESPIRATORY: No shortness of breath. GASTROINTESTINAL: See HPI for pertinent findings HEMATOLOGIC: Denies bleeding disorders. GENITOURINARY: Denies any blood in urine or increased urinary frequency. SKIN: Denies pruitis. Denies rash. PHYSICAL EXAM: VITAL SIGNS: Reviewed GENERAL: Well-developed in no acute distress. HEENT: No sclera icterus. Extraocular movements grossly intact. Moist buccal mucosa. Head is atraumatic, normocephalic. No nasal drainage. ABDOMEN: Soft. Nondistended. Discomfort with palpation of the right upper quadrant NEUROLOGIC: Alert and oriented. Cranial nerves II through XII grossly intact. LABORATORY DATA: WBC 14.1 down to 10.3 hemoglobin 10.9 down to 9.1 platelets 1038 down to 791 sodium 136 creatinine 0.60 LFTs trending down total bilirubin normal lipase normal IMAGING: computed tomography scan of the abdomen and pelvis with findings likely representing biloma, subcapsular extension, abnormal collection within the pelvis consider encapsulated bile leak. HIDA Scan shows probable contained slow biliary leak extending superiorly along the right aspect of the liver seen best towards the end of the study. ASSESSMENT: 1. Right upper quadrant abdominal pain with biloma due to biliary leak 2. Status post laparoscopic cholecystectomy on 12/28/2020 3. Thrombocytosis followed by hematology PLAN: -GI on consult in planning for ERCP and stent placement for biliary leak tomorrow -Continue antibiotics -Continue IV fluids -Continue pain medication as needed -Medicine consult for medical management -Continue regular diet and nothing by mouth after midnight for ERCP Physician Pet Caretaker note has been reviewed by physician. Signing provider agrees with the documented findings, assessment, and plan of care. Past Medical History Past Medical History: GERD/Reflux Additional Past Medical History / Comment(s): Hiatal Hernia. History of Any Multi-Drug Resistant Organisms: MRSA Date of last positivie culture/infection: 2012 MDRO Source:: abd Past Surgical History: Section, Cholecystectomy, Tubal Ligation Additional Past Surgical History / Comment(s): Liver biopsy, EGD. 2 c-sections Past Anesthesia/Blood Transfusion Reactions: No Reported Reaction, Motion Sickness Past Psychological History: No Psychological Hx Reported Smoking Status: Current every day smoker Past Alcohol Use History: Occasional Additional Past Alcohol Use History / Comment(s): Has been smoking for 15 yrs, 3/4 PPD. Past Drug Use History: Marijuana Additional Drug Use History / Comment(s): Uses Marijuana once in awhile. Aware no use 24 hrs prior to procedure. - Past Family History Father Family Medical History: Cancer Additional Family Medical History / Comment(s): Lung Cancer Medications and Allergies Home Medications Medication Instructions Recorded Confirmed Type Acetaminophen Tab [Tylenol Tab] 1,000 mg PO Q6H PRN 01/29/21 01/29/21 History Wheat Dextrin [Benefiber] 2 tsp PO HS 01/29/21 01/29/21 History Allergies Allergy/AdvReac Type Severity Reaction Status Date / Time codeine AdvReac Nausea & Verified 01/29/21 17:01 Vomiting Surgical - Exam Vital Signs Temp Pulse Resp BP Pulse Ox 98.1 F 120 H 16 106/67 98 01/29/21 11:33 01/29/21 11:33 01/29/21 11:33 01/29/21 11:33 01/29/21 11:33 Results - Labs 01/30/21 07:00 06/02/21 07:00 Abnormal Lab Results - Last 24 Hours (Table) 01/29/21 01/30/21 01/30/21 Range/Units 12:24 07:00 07:00 RBC 3.27 L (3.80-5.40) m/uL Hgb 9.1 L D (11.4-16.0) gm/dL Hct 30.4 L (34.0-46.0) % MCHC 30.0 L (31.0-37.0) g/dL RDW 16.6 H (11.5-15.5) % Plt Count 791 H (150-450) k/uL Sodium 136 L (137-145) mmol/L Iron 10 L (50-170) ug/dL TIBC 195 L (228-460) ug/dL % Saturation 5.13 L (12.00-45.00) Ferritin 365.1 H (10.0-291.0) ng/mL Alkaline Phosphatase 199 H (38-126) U/L Total Protein 5.7 L (6.3-8.2) g/dL Albumin 2.8 L (3.5-5.0) g/dL Urine Appearance Turbid H (Clear) Ur Specific [place] 1.042 H (1.001-1.035) Urine Protein 1+ H (Negative) Urine Blood Moderate H (Negative) Urine Bilirubin 1+ H (Negative) Ur Leukocyte Esterase Small H (Negative) Amorphous Sediment Many H (None) /hpf Urine Bacteria Occasional H (None) /hpf Urine Mucus Many H (None) /hpf Diabetes panel 01/30/21 Range/Units 07:00 Sodium 136 L (137-145) mmol/L Potassium 3.7 (3.5-5.1) mmol/L Chloride 102 (98-107) mmol/L Carbon Dioxide 27 (22-30) mmol/L BUN 10 (7-17) mg/dL Creatinine 0.60 (0.52-1.04) mg/dL Glucose 92 (74-99) mg/dL Calcium 8.4 (8.4-10.2) mg/dL AST 31 (14-36) U/L ALT 20 (4-34) U/L Alkaline Phosphatase 199 H (38-126) U/L Total Protein 5.7 L (6.3-8.2) g/dL Albumin 2.8 L (3.5-5.0) g/dL Calcium panel 01/30/21 Range/Units 07:00 Calcium 8.4 (8.4-10.2) mg/dL Albumin 2.8 L (3.5-5.0) g/dL Pituitary panel 01/30/21 Range/Units 07:00 Sodium 136 L (137-145) mmol/L Potassium 3.7 (3.5-5.1) mmol/L Chloride 102 (98-107) mmol/L Carbon Dioxide 27 (22-30) mmol/L BUN 10 (7-17) mg/dL Creatinine 0.60 (0.52-1.04) mg/dL Glucose 92 (74-99) mg/dL Calcium 8.4 (8.4-10.2) mg/dL Adrenal panel 01/30/21 Range/Units 07:00 Sodium 136 L (137-145) mmol/L Potassium 3.7 (3.5-5.1) mmol/L Chloride 102 (98-107) mmol/L Carbon Dioxide 27 (22-30) mmol/L BUN 10 (7-17) mg/dL Creatinine 0.60 (0.52-1.04) mg/dL Glucose 92 (74-99) mg/dL Calcium 8.4 (8.4-10.2) mg/dL Total Bilirubin 0.6 (0.2-1.3) mg/dL AST 31 (14-36) U/L ALT 20 (4-34) U/L Alkaline Phosphatase 199 H (38-126) U/L Total Protein 5.7 L (6.3-8.2) g/dL Albumin 2.8 L (3.5-5.0) g/dL
--- NOTE | 2021-01-30 14:24 | P.CONS ---
History of Present Illness - Reason for Consult Leukocytosis - History of Present Illness 33-year-old the female came in with complains of right upper quadrant abdominal pain radiating to the right shoulder area. Patient had a laparoscopic cholecystectomy on December 28 since then patient continued to have this pain. Patient had a HIDA scan and CT of the abdomen both were consistent with believe, with some subscapular extension possible bile leak. 2 surgery evaluated the patient and consulted gastroenterology for possible ERCP. Review of Systems REVIEW OF SYSTEMS: CONSTITUTIONAL: No fever, no malaise, no fatigue. HEENT: No recent visual problems or hearing problems. Denied any sore throat. CARDIOVASCULAR: No chest pain, orthopnea, PND, no palpitations, no syncope. PULMONARY: No shortness of breath, no cough, no hemoptysis. GASTROINTESTINAL: As mentioned in HPI NEUROLOGICAL: No headaches, no weakness, no numbness. HEMATOLOGICAL: Denies any bleeding or petechiae. GENITOURINARY: Denies any burning micturition, frequency, or urgency. MUSCULOSKELETAL/RHEUMATOLOGICAL: Denies any joint pain, swelling, or any muscle pain. ENDOCRINE: Denies any polyuria or polydipsia. The rest of the 14-point review of systems is negative. Past Medical History Past Medical History: GERD/Reflux Additional Past Medical History / Comment(s): Hiatal Hernia. History of Any Multi-Drug Resistant Organisms: MRSA Year Discovered:: 2012 MDRO Source:: abd Past Surgical History: Section, Cholecystectomy, Tubal Ligation Additional Past Surgical History / Comment(s): Liver biopsy, EGD. 2 c-sections Past Anesthesia/Blood Transfusion Reactions: No Reported Reaction, Motion Sickness Past Psychological History: No Psychological Hx Reported Smoking Status: Current every day smoker Past Alcohol Use History: Occasional Additional Past Alcohol Use History / Comment(s): Has been smoking for 15 yrs, 3/4 PPD. Past Drug Use History: Marijuana Additional Drug Use History / Comment(s): Uses Marijuana once in awhile. Aware no use 24 hrs prior to procedure. - Past Family History Father Family Medical History: Cancer Additional Family Medical History / Comment(s): Lung Cancer Medications and Allergies Home Medications Medication Instructions Recorded Confirmed Type Acetaminophen Tab [Tylenol Tab] 1,000 mg PO Q6H PRN 01/29/21 01/29/21 History Wheat Dextrin [Benefiber] 2 tsp PO HS 01/29/21 01/29/21 History Allergies Allergy/AdvReac Type Severity Reaction Status Date / Time codeine AdvReac Nausea & Verified 01/29/21 17:01 Vomiting Physical Exam Vitals: Vital Signs Temp Pulse Pulse Resp BP BP Pulse Ox 01/30/21 05:02 98.4 F 102 H 16 113/79 96 01/29/21 23:07 98.3 F 107 H 16 118/82 98 01/29/21 22:27 102 H 18 110/70 96 Intake and Output 01/29/21 01/30/21 01/30/21 22:59 06:59 14:59 Intake Total 750 Balance 750 Intake: Intake, IV Titration 750 Amount Piperacillin-Tazobactam 3 100 .375 gm In Sodium Chloride 0.9% 100 ml @ 25 mls/hr IVPB Q8HR [facility] Rx# :[id number] Sodium Chloride 0.9% 1, 650 000 ml @ 130 mls/hr IV . Q7H42M [facility] Rx#:[id number] Other: Weight 74.525 kg PHYSICAL EXAMINATION: GENERAL: The patient is alert and oriented x3, not in any acute distress. Well developed, well nourished. HEENT: Pupils are round and equally reacting to light. EOMI. No scleral icterus. No conjunctival pallor. Normocephalic, atraumatic. No pharyngeal erythema. No thyromegaly. CARDIOVASCULAR: S1 and S2 present. No murmurs, rubs, or gallops. PULMONARY: Chest is clear to auscultation, no wheezing or crackles. ABDOMEN: Soft, tenderness in the right upper quadrant nondistended, normoactive bowel sounds. No palpable organomegaly. MUSCULOSKELETAL: No joint swelling or deformity. EXTREMITIES: No cyanosis, clubbing, or pedal edema. NEUROLOGICAL: Gross neurological examination did not reveal any focal deficits. SKIN: No rashes. Results CBC & Chem 7: 01/30/21 07:00 01/30/21 07:00 Labs: Abnormal Lab Results - Last 24 Hours (Table) 01/30/21 01/30/21 Range/Units 07:00 07:00 RBC 3.27 L (3.80-5.40) m/uL Hgb 9.1 L D (11.4-16.0) gm/dL Hct 30.4 L (34.0-46.0) % MCHC 30.0 L (31.0-37.0) g/dL RDW 16.6 H (11.5-15.5) % Plt Count 791 H (150-450) k/uL Sodium 136 L (137-145) mmol/L Iron 10 L (50-170) ug/dL TIBC 195 L (228-460) ug/dL % Saturation 5.13 L (12.00-45.00) Ferritin 365.1 H (10.0-291.0) ng/mL Alkaline Phosphatase 199 H (38-126) U/L Total Protein 5.7 L (6.3-8.2) g/dL Albumin 2.8 L (3.5-5.0) g/dL Assessment and Plan Plan: -Leukocytosis: Secondary to biliary leak patient is presently on Zosyn which mary l be continued, no surgery and gastroenterology following the patient. -Gases visual reflux disease -Thrombocytosis: Reactive thrombocytosis secondary to surgery and infection no further intervention is necessary at this time -Nicotine use: Counseling was provided
[2021-01-30] MEDS: PANTOPRAZOLE 40 MG TABLET PO SCH (15:34)
[2021-01-30] MEDS: bisacodyL 5 MG TABLET.DR PO SCH (16:25)
[2021-01-30] MEDS: HYDROmorphone 1 MG/ML 1 ML SYRINGE IVP PRN ×2 (20:12→22:26)
--- NOTE | 2021-01-30 23:21 | P.CONS ---
History of Present Illness - Reason for Consult Consult date: 01/30/21 Bile leak Requesting physician: Kareem Carpenter - Chief Complaint Abdominal pain - History of Present Illness 35-year-old female with a history of hiatal hernia, GERD, tobacco abuse, and cholecystectomy on 12/28/20 who presented to the hospital for evaluation of abdominal pain. The patient reports persistent pain in the right upper quadrant of her abdomen which is present since her laparoscopic cholecystectomy. She denies any associated fevers or chills. On presentation laboratory evaluation has been significant for WBC 10.1, hemoglobin 9.1, platelet count 791,000, INR 1, total bilirubin 0.6, alkaline phosphatase 199, AST 31, ALT 20, amylase 39, and lipase of 45. She underwent imaging with a HIDA scan which showed a probable bile leak. Review of Systems REVIEW OF SYSTEMS: CONSTITUTIONAL: Denies any fevers, chills, weight change or fatigue. CARDIOVASCULAR: Denies any chest pain, palpitations high or low blood pressures RESPIRATORY: Denies any shortness of breath, hemoptysis or cough. GENITOURINARY: No dysuria or hematuria. MUSCULOSKELETAL: No weakness reported. SKIN: Denies any new rashes or lesions, jaundice or pallor. PSYCHIATRIC: Denies any depression or anxiety. NEUROLOGY: Denies headache, denies any new focal deficits. EARS/NOSE/THROAT: No recent hearing change, congestion, nasal discharge or sore throat. EYES: No pain in eyes, discharge or change in vision. GASTROINTESTINAL: As per HPI. Past Medical History Past Medical History: GERD/Reflux Additional Past Medical History / Comment(s): Hiatal Hernia. History of Any Multi-Drug Resistant Organisms: MRSA Year Discovered:: 2012 MDRO Source:: abd Past Surgical History: Section, Cholecystectomy, Tubal Ligation Additional Past Surgical History / Comment(s): Liver biopsy, EGD. 2 c-sections Past Anesthesia/Blood Transfusion Reactions: No Reported Reaction, Motion Sickness Past Psychological History: No Psychological Hx Reported Smoking Status: Current every day smoker Past Alcohol Use History: Occasional Additional Past Alcohol Use History / Comment(s): Has been smoking for 15 yrs, 3/4 PPD. Past Drug Use History: Marijuana Additional Drug Use History / Comment(s): Uses Marijuana once in awhile. Aware no use 24 hrs prior to procedure. - Past Family History Father Family Medical History: Cancer Additional Family Medical History / Comment(s): Lung Cancer Medications and Allergies Home Medications Medication Instructions Recorded Confirmed Type Acetaminophen Tab [Tylenol Tab] 1,000 mg PO Q6H PRN 01/29/21 01/29/21 History Wheat Dextrin [Benefiber] 2 tsp PO HS 01/29/21 01/29/21 History Allergies Allergy/AdvReac Type Severity Reaction Status Date / Time codeine AdvReac Nausea & Verified 01/29/21 17:01 Vomiting Physical Exam Vitals: Vital Signs Temp Pulse Pulse Resp BP BP Pulse Ox 01/30/21 18:02 98.8 F 103 H 18 119/73 97 01/30/21 05:02 98.4 F 102 H 16 113/79 96 01/29/21 23:07 98.3 F 107 H 16 118/82 98 01/29/21 22:27 102 H 18 110/70 96 Intake and Output 01/30/21 01/30/21 01/30/21 06:59 14:59 22:59 Intake Total 750 680 Balance 750 680 Intake: Intake, IV Titration 750 Amount Piperacillin-Tazobactam 3 100 .375 gm In Sodium Chloride 0.9% 100 ml @ 25 mls/hr IVPB Q8HR [facility] Rx# :[id number] Sodium Chloride 0.9% 1, 650 000 ml @ 75 mls/hr IV . [id number] [facility] Rx#:[id number] Oral 680 Other: # Voids 2 On physical examination, patient appears comfortable in no apparent distress. HEAD: Normocephalic, atraumatic. EYES: No scleral icterus. No conjunctival injection. MOUTH: No lesions, tongue midline. NECK: Trachea midline, no gross abnormalities. CHEST: Clear to auscultation with no wheezing or rhonchi appreciated. HEART: Regular rate and rhythm. ABDOMEN: Soft, tender to palpation. Bowel sounds are positive. No organomegaly. No guarding or rigidity. EXTREMITIES: No pedal edema. SKIN: No rashes, no jaundice. NEUROLOGIC: Alert and oriented x3. No focal deficits. Results CBC & Chem 7: 01/30/21 07:00 01/30/21 07:00 Labs: Abnormal Lab Results - Last 24 Hours (Table) 01/30/21 01/30/21 Range/Units 07:00 07:00 RBC 3.27 L (3.80-5.40) m/uL Hgb 9.1 L D (11.4-16.0) gm/dL Hct 30.4 L (34.0-46.0) % MCHC 30.0 L (31.0-37.0) g/dL RDW 16.6 H (11.5-15.5) % Plt Count 791 H (150-450) k/uL Sodium 136 L (137-145) mmol/L Iron 10 L (50-170) ug/dL TIBC 195 L (228-460) ug/dL % Saturation 5.13 L (12.00-45.00) Ferritin 365.1 H (10.0-291.0) ng/mL Alkaline Phosphatase 199 H (38-126) U/L Total Protein 5.7 L (6.3-8.2) g/dL Albumin 2.8 L (3.5-5.0) g/dL Comments: HIDA scan with findings suggestive of a slow bile leak. Assessment and Plan (1) Bile leak, postoperative Narrative/Plan: 35-year-old female with a medical history significant for GERD, hiatal hernia, tobacco abuse and cholecystectomy on 12/28/20. She presents to the hospital with persistent right upper quadrant abdominal pain. HIDA imaging suggestive of a bile leak. Current Visit: Yes Status: Acute Code(s): K91.89 - OTH POSTPROCEDURAL COMPLICATIONS AND DISORDERS OF DGSTV SYS; K83.8 - OTHER SPECIFIED DISEASES OF BILIARY TRACT SNOMED Code(s): 977426781 (2) Abdominal pain Current Visit: Yes Status: Acute Code(s): R10.9 - UNSPECIFIED ABDOMINAL PAIN SNOMED Code(s): 58469025 (3) Leukocytosis Current Visit: Yes Status: Acute Code(s): D72.829 - ELEVATED WHITE BLOOD CELL COUNT, UNSPECIFIED SNOMED Code(s): 175330544 Plan: Supportive care Diet as per surgical recommendations Nothing by mouth after midnight Continue broad-spectrum antibiotic therapy Plan discussed with the surgical service and ERCP scheduled for tomorrow Extensive discussion with the patient regarding presentation and imaging findings with plan for ERCP tomorrow with all of the benefits, risks and possible complications including but not limited to bleeding, infection, lace ration pancreatitis explained at length with all her questions answered to her satisfaction Thank you for allowing us dysphagia in the care of the patient
[2021-01-31] MEDS: HYDROmorphone 1 MG/ML 1 ML SYRINGE IVP PRN ×8 (02:30→22:03)
[2021-01-31] MEDS: KETOROLAC 15 MG/ML 1 ML VIAL IVP SCH ×4 (05:58→23:45)
[2021-01-31] MEDS: SODIUM CHLORIDE 0.9% 1,000 ML IV SCH ×2 (06:00→14:11)
[2021-01-31] MEDS: PANTOPRAZOLE 40 MG TABLET PO SCH (07:42)
[2021-01-31] MEDS: bisacodyL 5 MG TABLET.DR PO SCH (07:43)
[2021-01-31] MEDS: PIPERACILLIN-TAZOBACTAM 3.375 GM in SODIUM CHLORIDE 0.9% 100 ML IVPB SCH ×3 (07:46→23:46)
[2021-01-31] MEDS: NICOTINE 14MG/24HR PATCH TRANSDERM SCH (07:47)
[2021-01-31 08:46] LABS: Anisocytosis Slight; Basophils # (A) 0.1 k/uL (0-0.2); Basophils % (A) 1 %; Eosinophils # (A) 0.2 k/uL (0-0.7); Eosinophils % (A) 1 %; HCT 31.1 % (34.0-46.0); HGB 9.4 gm/dL (11.4-16.0); Hypochromasia Marked; Lymphocytes # (A) 1.8 k/uL (1.0-4.8); Lymphocytes % (A) 16 %; MCH 28.5 pg (25.0-35.0); MCHC 30.2 g/dL (31.0-37.0); MCV 94.2 fL (80.0-100.0); Mean Platelet Volume 7.3; Monocytes # (A) 0.8 k/uL (0-1.0); Monocytes % (A) 6 %; Neutrophils # (A) 8.9 k/uL (1.3-7.7); Neutrophils % (A) 75 %; Platelet Count 807 k/uL (150-450); RDW 16.5 % (11.5-15.5); WBC 11.9 k/uL (3.8-10.6)
[2021-01-31 09:03] LABS: ALT 17 U/L (4-34); AST 30 U/L (14-36); African American GFR (CKD) >90 (>60 ml/min/1.73 sqM); Albumin 2.9 g/dL (3.5-5.0); Alkaline Phosphatase 221 U/L (38-126); Anion Gap 4 mmol/L; Blood Urea Nitrogen 7 mg/dL (7-17); Calcium 8.3 mg/dL (8.4-10.2); Carbon Dioxide 28 mmol/L (22-30); Chloride 104 mmol/L (98-107); Glucose 95 mg/dL (74-99); Non-African American GFR(CKD) >90 (>60 ml/min/1.73 sqM); Potassium 3.7 mmol/L (3.5-5.1); Sodium 136 mmol/L (137-145); Total Bilirubin 0.7 mg/dL (0.2-1.3); Total Protein 5.9 g/dL (6.3-8.2)
[2021-01-31] MEDS ORDERED: LIDOCAINE 1% INJ 10MG/ML (20 ML MDV) ONE (11:59)
[2021-01-31] MEDS ORDERED: SUCCINYLCHOLINE CHLORIDE 100 MG/5 ML SYR IV ONE (11:59)
[2021-01-31] MEDS ORDERED: fentaNYL (PF) 50 MCG/ML 2 ML AMP ONE (11:59)
[2021-01-31] MEDS ORDERED: PROPOFOL 10 MG/ML 20 ML VIAL IV ONE (11:59)
[2021-01-31] MEDS ORDERED: ONDANSETRON 4 MG/2 ML VIAL ONE (11:59)
[2021-01-31] MEDS ORDERED: PHENYLEPHRINE-0.9% NACL SYG 1,000 MCG/10 ML SYRINGE ONE (11:59)
[2021-01-31] MEDS ORDERED: MIDAZOLAM 2 MG/2 ML VIAL ONE (11:59)
[2021-01-31] MEDS ORDERED: IV FLUID CONTINUATION 1,000 ML IV ONE (12:03)
[2021-01-31] MEDS ORDERED: SODIUM CHLORIDE 0.9% 500 ML 500 ML IV ONE ×2 (12:14)
[2021-01-31] MEDS ORDERED: INDOMETHACIN 50MG SUPPOSITORY RECTAL ONE (12:30)
[2021-01-31] MEDS ORDERED: IOPAMIDOL-300 50ML BTL MISCELLANE ONE (12:47)
--- NOTE | 2021-01-31 12:58 | P.PCN ---
Date of Procedure: 01/31/21 Description of Procedure: Brief history: 35-year-old female with a history of hiatal hernia, GERD, tobacco abuse, and cholecystectomy on 12/28/20 who presented to the hospital for evaluation of abdominal pain. The patient reports persistent pain in the right upper quadrant of her abdomen which is present since her laparoscopic cholecystectomy. She denies any associated fevers or chills. On presentation laboratory evaluation has been significant for WBC 10.1, hemoglobin 9.1, platelet count 791,000, INR 1, total bilirubin 0.6, alkaline phosphatase 199, AST 31, ALT 20, amylase 39, and lipase of 45. She underwent imaging with a HIDA scan which showed a probable bile leak. Procedure performed: ERCP with cholangiogram, sphincterotomy, balloon sweep and placement of a double pigtail plastic stent in the CBD Preoperative diagnoses: Bile leak, right upper quadrant abdominal pain IV sedation per anesthesia Estimated blood loss: Minimal. Procedure: After informed consent was obtained from the patient and after the risks benefits and complications including bleeding perforation and pancreatitis explained in detail the patient was brought into the endoscopy unit. The patient was placed in prone position and IV conscious sedation was administered by anesthesia under continuous monitoring. The Olympus side-viewing duodenoscope was then inserted into the mouth and esophagus intubated without any difficulty. The scope was gradually advanced into the stomach and duodenum. The major papilla was identified without any difficulty. Cannulation of the major papilla was successful with a guidewire passed into the CBD into the hepatic bifurcation. Dye was injected into the CBD and common hepatic duct with visualization of the intrahepatics. A bile leak was noted on cholangiogram. The sphincterotome was then used to perform a 7 mm sphincterotomy. The autotome was then exchanged over a wire for a balloon extractor which was inflated to 8.5 mm in serial used to sweep the bile duct. No stones or debris were noted. The balloon extractors was then exchanged over a wire for a 7-Fijian by 10 cm double-pigtail plastic stents which was successfully passed into the CBD. The pancreatic duct was not cannulated or injected. The patient tolerated the procedure well. Impression: Bile leak, verified on cholangiogram. ERCP with cholangiogram, sphincterotomy, balloon sweep of the CBD and placement of a double pigtail plastic CBD stent. Recommendations: The findings of this examination were discussed with the patient as well as a family/father. Okay to resume diet. Okay to resume medications. Continue to monitor for signs and symptoms of pancreatitis and other possible complications. Continue other management as per surgical recommendations and consulting internal medicine service. The patient will need repeat endoscopic evaluation in 6-8 weeks for biliary stent removal.
--- NOTE | 2021-01-31 13:32 | P.PN ---
Subjective Progress Note Date: 01/31/21 CHIEF COMPLAINT: Abdominal pain HISTORY OF PRESENT ILLNESS: Patient complaining of right upper quadrant a bdominal pain with known biloma due to biliary leak. Patient underwent ERCP with placement of common bile duct stent today with Dr. Mederos. Patient was seen prior to procedure. Her pain was controlled with the IV Dilaudid. She denied any nausea or vomiting. Afebrile. She did have some tachycardia heart rate of 105 and which had come down to 87. Possibly due to her pain. Labs WBC 11.99.4 platelets 807 creatinine 0.62 total iron 10 LFTs normal alk phos 221 PHYSICAL EXAM: VITAL SIGNS: Reviewed. GENERAL: Well-developed in no acute distress. HEENT: No sclera icterus. Extraocular movements grossly intact. Moist buccal mucosa. Head is atraumatic, normocephalic. ABDOMEN: Soft. Nondistended. Nontender. NEUROLOGIC: Alert and oriented. Cranial nerves II through XII grossly intact. ASSESSMENT: 1. Right upper quadrant abdominal pain with biloma due to biliary leak status post ERCP and placement of common bile duct stent 2. Status post laparoscopic cholecystectomy on 12/28/2020 3. Thrombocytosis followed by hematology PLAN: -Continue supportive care -Continue antibiotics -Continue pain medications as needed -Continue regular diet Physician Applique Cutter note has been reviewed by physician. Signing provider agrees with the documented findings, assessment, and plan of care. Objective - Vital Signs Vital signs: Vital Signs Temp 97.1 F L 01/31/21 13:04 Pulse 101 H 01/31/21 13:19 Resp 16 01/31/21 13:19 BP 120/63 01/31/21 13:19 Pulse Ox 100 01/31/21 13:19 Intake & Output 01/30/21 01/31/21 01/31/21 18:59 06:59 18:59 Intake Total 680 100 300 Balance 680 100 300 Intake: IV 300 Oral 680 100 Other: Voiding Method Toilet # Voids 2 1 - Labs CBC & Chem 7: 01/31/21 08:26 01/31/21 08:26 Labs: Abnormal Lab Results - Last 24 Hours (Table) 01/31/21 01/31/21 Range/Units 08:26 08:26 WBC 11.9 H (3.8-10.6) k/uL RBC 3.30 L (3.80-5.40) m/uL Hgb 9.4 L (11.4-16.0) gm/dL Hct 31.1 L (34.0-46.0) % MCHC 30.2 L (31.0-37.0) g/dL RDW 16.5 H (11.5-15.5) % Plt Count 807 H (150-450) k/uL Neutrophils # 8.9 H (1.3-7.7) k/uL Sodium 136 L (137-145) mmol/L Calcium 8.3 L (8.4-10.2) mg/dL Alkaline Phosphatase 221 H (38-126) U/L Total Protein 5.9 L (6.3-8.2) g/dL Albumin 2.9 L (3.5-5.0) g/dL Microbiology - Last 24 Hours (Table) 01/29/21 18:57 Blood Culture - Preliminary Blood No Growth after 24 hours 01/29/21 18:55 Blood Culture - Preliminary Blood No Growth after 24 hours
--- NOTE | 2021-01-31 13:42 | FL ---
Fluoroscopy HISTORY: Bile leak 24 seconds fluoroscopy time supplied to the referring clinician. 5 intraoperative C-arm images docum ent the procedure. See dictated report from gastroenterology.
--- NOTE | 2021-01-31 14:26 | P.PN ---
Subjective 33-year-old the female came in with complains of right upper quadrant abdominal pain radiating to the right shoulder area. Patient had a laparoscopic cholecystectomy on December 28 since then patient continued to have this pain. Patient had a HIDA scan and CT of the abdomen both were consistent with believe, with some subscapular extension possible bile leak. 2 surgery evaluated the patient and consulted gastroenterology for possible ERCP. 01/31/2021 Patient had an ERCP which showed biliary leak. Patient had sleep of count bile duct and had a stent in the common bile duct. Patient is otherwise clinically doing well abdominal pain improved. I saw her before the ERCP procedure at that time patient received Dilaudid because of which her pain is pedro luis. Constitutional: Denied any fatigue denied any fever. Cardio vascular: denied any chest pain, palpitations Gastrointestinal as mentioned in the interval history Pulmonary: Denied any shortness of breath cough Neurologic denied any new focal deficits All inpatient medications were reviewed and appropriate changes in these medications as dictated in the interval history and assessment and plan. Objective - Vital Signs Vital signs: Vital Signs Temp 97.1 F L 01/31/21 13:04 Pulse 99 01/31/21 13:49 Resp 16 01/31/21 13:49 BP 129/72 01/31/21 13:49 Pulse Ox 96 01/31/21 13:49 Intake & Output 01/30/21 01/31/21 01/31/21 18:59 06:59 18:59 Intake Total 680 100 400 Balance 680 100 400 Intake: IV 400 Oral 680 100 Other: Voiding Method Toilet # Voids 2 1 - Exam PHYSICAL EXAMINATION: GENERAL: The patient is alert and oriented x3, not in any acute distress. Well developed, well nourished. HEENT: Pupils are round and equally reacting to light. EOMI. No scleral icterus. No conjunctival pallor. Normocephalic, atraumatic. No pharyngeal erythema. No thyromegaly. CARDIOVASCULAR: S1 and S2 present. No murmurs, rubs, or gallops. PULMONARY: Chest is clear to auscultation, no wheezing or crackles. ABDOMEN: Soft, nontender, nondistended, normoactive bowel sounds. No palpable organomegaly. MUSCULOSKELETAL: No joint swelling or deformity. EXTREMITIES: No cyanosis, clubbing, or pedal edema. NEUROLOGICAL: Gross neurological examination did not reveal any focal deficits. SKIN: No rashes. - Labs CBC & Chem 7: 01/31/21 08:26 01/31/21 08:26 Labs: Abnormal Lab Results - Last 24 Hours (Table) 01/31/21 01/31/21 Range/Units 08:26 08:26 WBC 11.9 H (3.8-10.6) k/uL RBC 3.30 L (3.80-5.40) m/uL Hgb 9.4 L (11.4-16.0) gm/dL Hct 31.1 L (34.0-46.0) % MCHC 30.2 L (31.0-37.0) g/dL RDW 16.5 H (11.5-15.5) % Plt Count 807 H (150-450) k/uL Neutrophils # 8.9 H (1.3-7.7) k/uL Sodium 136 L (137-145) mmol/L Calcium 8.3 L (8.4-10.2) mg/dL Alkaline Phosphatase 221 H (38-126) U/L Total Protein 5.9 L (6.3-8.2) g/dL Albumin 2.9 L (3.5-5.0) g/dL Microbiology - Last 24 Hours (Table) 01/29/21 18:57 Blood Culture - Preliminary Blood No Growth after 24 hours 01/29/21 18:55 Blood Culture - Preliminary Blood No Growth after 24 hours Assessment and Plan Plan: -Leukocytosis: Secondary to biliary leak patient is presently on Zosyn which will be continued, patient had ERCP and found to have biliary leak, common bile duct stent was placed. -Gases visual reflux disease -Thrombocytosis: Reactive thrombocytosis secondary to surgery and infection no further intervention is necessary at this time -Leukocytosis reactive -Nicotine use: Counseling was provided
[2021-01-31] MEDS: HEPARIN SODIUM,PORCINE/PF 5,000 UNIT/0.5 ML SYRINGE SQ SCH (20:28)
[2021-02-01] MEDS: HYDROmorphone 1 MG/ML 1 ML SYRINGE IVP PRN ×7 (01:00→21:50)
[2021-02-01] MEDS: SODIUM CHLORIDE 0.9% 1,000 ML IV SCH ×2 (03:22→23:22)
[2021-02-01] MEDS: KETOROLAC 15 MG/ML 1 ML VIAL IVP SCH ×3 (05:19→17:49)
[2021-02-01] MEDS: PIPERACILLIN-TAZOBACTAM 3.375 GM in SODIUM CHLORIDE 0.9% 100 ML IVPB SCH ×3 (08:01→23:28)
[2021-02-01] MEDS: HEPARIN SODIUM,PORCINE/PF 5,000 UNIT/0.5 ML SYRINGE SQ SCH ×2 (08:02→21:20)
[2021-02-01] MEDS: NICOTINE 14MG/24HR PATCH TRANSDERM SCH (08:02)
[2021-02-01] MEDS: PANTOPRAZOLE 40 MG TABLET PO SCH (08:02)
[2021-02-01] MEDS: bisacodyL 5 MG TABLET.DR PO SCH (08:02)
[2021-02-01 09:37] LABS: ALT 20 U/L (4-34); AST 39 U/L (14-36); African American GFR (CKD) >90 (>60 ml/min/1.73 sqM); Albumin 2.8 g/dL (3.5-5.0); Alkaline Phosphatase 318 U/L (38-126); Anion Gap 5 mmol/L; Blood Urea Nitrogen 3 mg/dL (7-17); Calcium 8.6 mg/dL (8.4-10.2); Carbon Dioxide 26 mmol/L (22-30); Chloride 106 mmol/L (98-107); Globulin 2.9 g/dL; Glucose 93 mg/dL (74-99); Non-African American GFR(CKD) >90 (>60 ml/min/1.73 sqM); Potassium 3.8 mmol/L (3.5-5.1); Sodium 137 mmol/L (137-145); Total Bilirubin 0.8 mg/dL (0.2-1.3); Total Protein 5.7 g/dL (6.3-8.2)
[2021-02-01 10:17] LABS: Anisocytosis Slight; Basophils # (A) 0.1 k/uL (0-0.2); Basophils % (A) 1 %; Eosinophils # (A) 0.1 k/uL (0-0.7); Eosinophils % (A) 1 %; HCT 28.5 % (34.0-46.0); HGB 8.8 gm/dL (11.4-16.0); Hypochromasia Marked; Lymphocytes # (A) 1.8 k/uL (1.0-4.8); Lymphocytes % (A) 17 %; MCH 29.2 pg (25.0-35.0); MCV 94.4 fL (80.0-100.0); Mean Platelet Volume 7.6; Monocytes # (A) 0.9 k/uL (0-1.0); Monocytes % (A) 8 %; Neutrophils # (A) 8.2 k/uL (1.3-7.7); Neutrophils % (A) 73 %; Platelet Count 748 k/uL (150-450); RBC 3.02 m/uL (3.80-5.40); RDW 16.5 % (11.5-15.5); WBC 11.2 k/uL (3.8-10.6)
[2021-02-01 10:24] LABS: Amylase 91 U/L (30-110); Lipase 724 U/L (23-300)
[2021-02-01] MEDS: HYDROcodone/APAP 5-325MG 1 EACH TAB PO PRN ×3 (10:40→18:38)
--- NOTE | 2021-02-01 12:19 | P.PN ---
Subjective Progress Note Date: 02/01/21 CHIEF COMPLAINT: Abdominal pain HISTORY OF PRESENT ILLNESS: Patient presented with right upper quadrant a bdominal pain and found to have a biloma due to biliary leak. Patient underwent ERCP with placement of common bile duct stent. Patient is complaining of more discomfort in the epigastric gastric area. She did required Dilaudid this morning. Oral pain medication has been added. Her lipase is elevated at 724. She's been made nothing by mouth his IV fluids increased to 100 mL per hour. She denies any nausea or vomiting. She did eat a regular diet this morning and felt that they had not increased her abdominal pain. However, patient is requesting pain medication when I evaluated her around 10:00 this morning. She is afebrile. Heart rate was 105 down to 99. WBC is 11.2 hemoglobin 8.8 platelets 748 creatinine 0.45 AST is 39 ALT is 20 alk phos 318 albumin 2.8 lipase 724 and amylase 91 PHYSICAL EXAM: VITAL SIGNS: Reviewed. GENERAL: Well-developed in no acute distress. HEENT: No sclera icterus. Extraocular movements grossly intact. Moist buccal mucosa. Head is atraumatic, normocephalic. ABDOMEN: Soft. Nondistended. Epigastric tenderness with palpation NEUROLOGIC: Alert and oriented. Cranial nerves II through XII grossly intact. ASSESSMENT: 1. Right upper quadrant abdominal pain with biloma due to biliary leak status post ERCP and placement of common bile duct stent 2. Status post laparoscopic cholecystectomy on 12/28/2020 3. Thrombocytosis followed by hematology 4. Anemia with evidence of iron deficiency anemia. Iron level of 10 5. Acute pancreatitis likely secondary to the ERCP PLAN: -Due to the pancreatitis will make patient nothing by mouth except medications -Increased IV fluids to 100 mL mL per hour -We'll give a dose of IV iron for her iron deficiency anemia -Add oral pain medication -Continue supportive care -Continue antibiotics -Continue pain medications as needed Physician Manager Architecture note has been reviewed by physician. Signing provider agrees with the documented findings, assessment, and plan of care. Objective - Vital Signs Vital signs: Vital Signs Temp 98.4 F 02/01/21 09:47 Pulse 99 02/01/21 09:47 Resp 18 02/01/21 09:47 BP 111/73 02/01/21 09:47 Pulse Ox 96 02/01/21 09:47 Intake & Output 01/31/21 02/01/21 02/01/21 18:59 06:59 18:59 Intake Total 1500 Balance 1500 Intake: IV 400 Intake, IV Titration 1100 Amount Piperacillin-Tazobactam 3 200 .375 gm In Sodium Chloride 0.9% 100 ml @ 25 mls/hr IVPB Q8HR [facility] Rx# :[id number] Sodium Chloride 0.9% 1, 900 000 ml @ 75 mls/hr IV . [id number] [facility] Rx#:[id number] Other: Voiding Method Toilet # Voids 3 3 # Bowel Movements 1 - Labs CBC & Chem 7: 02/01/21 09:02 02/01/21 09:02 Labs: Abnormal Lab Results - Last 24 Hours (Table) 02/01/21 02/01/21 02/01/21 Range/Units 09:02 09:02 09:02 WBC 11.2 H (3.8-10.6) k/uL RBC 3.02 L (3.80-5.40) m/uL Hgb 8.8 L (11.4-16.0) gm/dL Hct 28.5 L (34.0-46.0) % RDW 16.5 H (11.5-15.5) % Plt Count 748 H (150-450) k/uL Neutrophils # 8.2 H (1.3-7.7) k/uL BUN 3 L (7-17) mg/dL Creatinine 0.45 L (0.52-1.04) mg/dL AST 39 H (14-36) U/L Alkaline Phosphatase 318 H (38-126) U/L Total Protein 5.7 L (6.3-8.2) g/dL Albumin 2.8 L (3.5-5.0) g/dL Lipase 724 H (23-300) U/L Microbiology - Last 24 Hours (Table) 01/29/21 18:57 Blood Culture - Preliminary Blood No Growth after 48 hours 01/29/21 18:55 Blood Culture - Preliminary Blood No Growth after 48 hours
[2021-02-01] MEDS ORDERED: SODIUM FERRIC GLUCONAT-SUCROSE 125 MG in SODIUM CHLORIDE 0.9% 100 ML IVPB ONE (12:30)
--- NOTE | 2021-02-01 14:52 | P.PN ---
Subjective Progress Note Date: 02/01/21 Principal diagnosis: Bile leak, abdominal pain The patient is seen lying in bed. She has complained of some epigastric abdominal pain this morning and was found to have mildly elevated lipase of 724 with a normal amylase 91. Patient was made nothing by mouth but is currently r eporting improvement of pain and asking for a diet. Objective - Vital Signs Vital signs: Vital Signs Temp 98.4 F 02/01/21 09:47 Pulse 99 02/01/21 09:47 Resp 18 02/01/21 09:47 BP 111/73 02/01/21 09:47 Pulse Ox 96 02/01/21 09:47 Intake & Output 01/31/21 02/01/21 02/01/21 18:59 06:59 18:59 Intake Total 1500 Balance 1500 Intake: IV 400 Intake, IV Titration 1100 Amount Piperacillin-Tazobactam 3 200 .375 gm In Sodium Chloride 0.9% 100 ml @ 25 mls/hr IVPB Q8HR [facility] Rx# :[id number] Sodium Chloride 0.9% 1, 900 000 ml @ 75 mls/hr IV . [id number] [facility] Rx#:[id number] Other: Voiding Method Toilet # Voids 3 3 # Bowel Movements 1 - Exam On physical examination, patient appears comfortable in no apparent distress. HEAD: Normocephalic, atraumatic. EYES: No scleral icterus. No conjunctival injection. MOUTH: No lesions, tongue midline. NECK: Trachea midline, no gross abnormalities. ABDOMEN: Soft, nontender to palpation. Bowel sounds are positive. No organom egaly. No guarding or rigidity. EXTREMITIES: No pedal edema. SKIN: No rashes, no jaundice. NEUROLOGIC: Alert and oriented x3. No focal deficits. - Labs CBC & Chem 7: 02/01/21 09:02 02/01/21 09:02 Labs: Abnormal Lab Results - Last 24 Hours (Table) 02/01/21 02/01/21 02/01/21 Range/Units 09:02 09:02 09:02 WBC 11.2 H (3.8-10.6) k/uL RBC 3.02 L (3.80-5.40) m/uL Hgb 8.8 L (11.4-16.0) gm/dL Hct 28.5 L (34.0-46.0) % RDW 16.5 H (11.5-15.5) % Plt Count 748 H (150-450) k/uL Neutrophils # 8.2 H (1.3-7.7) k/uL BUN 3 L (7-17) mg/dL Creatinine 0.45 L (0.52-1.04) mg/dL AST 39 H (14-36) U/L Alkaline Phosphatase 318 H (38-126) U/L Total Protein 5.7 L (6.3-8.2) g/dL Albumin 2.8 L (3.5-5.0) g/dL Lipase 724 H (23-300) U/L Microbiology - Last 24 Hours (Table) 01/29/21 18:57 Blood Culture - Preliminary Blood No Growth after 48 hours 01/29/21 18:55 Blood Culture - Preliminary Blood No Growth after 48 hours Assessment and Plan (1) Bile leak, postoperative Narrative/Plan: 35-year-old female with a medical history significant for GERD, hiatal hernia, tobacco abuse and cholecystectomy on 12/28/20. She presents to the hospital with persistent right upper quadrant abdominal pain. HIDA imaging suggestive of a bile leak. Status post ERCP on 02/27/21 with findings of bile leak status post sphincterotomy, cholangiogram, balloon sweep and stent placement. Mildly elevated lipase today 724 with normal amylase of 91, doubt post-ERCP pancreatitis, however cannot be totally ruled out. Patient currently reporting improvement in pain and would like a diet. Current Visit: Yes Status: Acute Code(s): K91.89 - OTH POSTPROCEDURAL COMPLICATIONS AND DISORDERS OF DGSTV SYS; K83.8 - OTHER SPECIFIED DISEASES OF BILIARY TRACT SNOMED Code(s): 527839758 (2) Abdominal pain Current Visit: Yes Status: Acute Code(s): R10.9 - UNSPECIFIED ABDOMINAL PAIN SNOMED Code(s): 03838899 (3) Leukocytosis Current Visit: Yes Status: Acute Code(s): D72.829 - ELEVATED WHITE BLOOD CELL COUNT, UNSPECIFIED SNOMED Code(s): 982740122 Plan: Supportive care Clear liquid diet, advance as per surgical recommendations Continue broad-spectrum antibiotic therapy Status post successful stent placement with double pigtail plastic stent placed in CBD during ERCP, patient will need repeat procedure with stent removal in 6-8 weeks Thank you for allowing us to participate in the care of the patient, okay for discharge from GI would otherwise medically stable with follow-up in the GI clinic
--- NOTE | 2021-02-01 15:58 | P.PN ---
Subjective 33-year-old the female came in with complains of right upper quadrant abdominal pain radiating to the right shoulder area. Patient had a laparoscopic cholecystectomy on December 28 since then patient continued to have this pain. Patient had a HIDA scan and CT of the abdomen both were consistent with believe, with some subscapular extension possible bile leak. 2 surgery evaluated the patient and consulted gastroenterology for possible ERCP. 01/31/2021 Patient had an ERCP which showed biliary leak. Patient had sleep of count bile duct and had a stent in the common bile duct. Patient is otherwise clinically doing well abdominal pain improved. I saw her before the ERCP procedure at that time patient received Dilaudid because of which her pain is better. 02/01/2021 patient was Complaining of some diffuse abdominal pain in her life is minimally elevated secondary to ERCP no evidence of pancreatic that is clinically patient can be restarted back on diet. Patient has normal amylase. Constitutional: Denied any fatigue denied any fever. Cardio vascular: denied any chest pain, palpitations Gastrointestinal as mentioned in the interval history Pulmonary: Denied any shortness of breath cough Neurologic denied any new focal deficits All inpatient medications were reviewed and appropriate changes in these medications as dictated in the interval history and assessment and plan. Objective - Vital Signs Vital signs: Vital Signs Temp 97.8 F 02/01/21 14:10 Pulse 86 02/01/21 14:10 Resp 18 02/01/21 14:10 BP 105/72 02/01/21 14:10 Pulse Ox 97 02/01/21 14:10 Intake & Output 01/31/21 02/01/21 02/01/21 18:59 06:59 18:59 Intake Total 1500 Balance 1500 Intake: IV 400 Intake, IV Titration 1100 Amount Piperacillin-Tazobactam 3 200 .375 gm In Sodium Chloride 0.9% 100 ml @ 25 mls/hr IVPB Q8HR [facility] Rx# :[id number] Sodium Chloride 0.9% 1, 900 000 ml @ 75 mls/hr IV . [id number] [facility] Rx#:[id number] Other: Voiding Method Toilet # Voids 3 3 # Bowel Movements 1 - Exam PHYSICAL EXAMINATION: GENERAL: The patient is alert and oriented x3, not in any acute distress. Well developed, well nourished. HEENT: Pupils are round and equally reacting to light. EOMI. No scleral icterus. No conjunctival pallor. Normocephalic, atraumatic. No pharyngeal erythema. No thyromegaly. CARDIOVASCULAR: S1 and S2 present. No murmurs, rubs, or gallops. PULMONARY: Chest is clear to auscultation, no wheezing or crackles. ABDOMEN: Soft, nontender, nondistended, normoactive bowel sounds. No palpable organomegaly. MUSCULOSKELETAL: No joint swelling or deformity. EXTREMITIES: No cyanosis, clubbing, or pedal edema. NEUROLOGICAL: Gross neurological examination did not reveal any focal deficits. SKIN: No rashes. - Labs CBC & Chem 7: 02/01/21 09:02 02/01/21 09:02 Labs: Abnormal Lab Results - Last 24 Hours (Table) 02/01/21 02/01/21 02/01/21 Range/Units 09:02 09:02 09:02 WBC 11.2 H (3.8-10.6) k/uL RBC 3.02 L (3.80-5.40) m/uL Hgb 8.8 L (11.4-16.0) gm/dL Hct 28.5 L (34.0-46.0) % RDW 16.5 H (11.5-15.5) % Plt Count 748 H (150-450) k/uL Neutrophils # 8.2 H (1.3-7.7) k/uL BUN 3 L (7-17) mg/dL Creatinine 0.45 L (0.52-1.04) mg/dL AST 39 H (14-36) U/L Alkaline Phosphatase 318 H (38-126) U/L Total Protein 5.7 L (6.3-8.2) g/dL Albumin 2.8 L (3.5-5.0) g/dL Lipase 724 H (23-300) U/L Microbiology - Last 24 Hours (Table) 01/29/21 18:57 Blood Culture - Preliminary Blood No Growth after 48 hours 01/29/21 18:55 Blood Culture - Preliminary Blood No Growth after 48 hours Assessment and Plan Plan: -Leukocytosis: Secondary to biliary leak patient is presently on Zosyn which will be continued, patient had ERCP and found to have biliary leak, common bile duct stent was placed. -Elevated lipase secondary to ERCP procedure no evidence of pancreatitis -Gases visual reflux disease -Thrombocytosis: Reactive thrombocytosis secondary to surgery and infection no further intervention is necessary at this time -Leukocytosis reactive -Nicotine use: Counseling was provided
--- NOTE | 2021-02-01 20:58 | P.PN ---
Subjective Progress Note Date: 02/01/21 Principal diagnosis: Bile Leak/Anemia GI continues to follow patient closely Objective - Vital Signs Vital signs: Vital Signs Temp 98.4 F 02/01/21 09:47 Pulse 99 02/01/21 09:47 Resp 18 02/01/21 09:47 BP 111/73 02/01/21 09:47 Pulse Ox 96 02/01/21 09:47 Intake & Output 01/31/21 02/01/21 02/01/21 18:59 06:59 18:59 Intake Total 1500 Balance 1500 Intake: IV 400 Intake, IV Titration 1100 Amount Piperacillin-Tazobactam 3 200 .375 gm In Sodium Chloride 0.9% 100 ml @ 25 mls/hr IVPB Q8HR [facility] [place] Rx# :[id number] Sodium Chloride 0.9% 1, 900 000 ml @ 75 mls/hr IV . [id number] [facility] [place] Rx#:[id number] Other: Voiding Method Toilet # Voids 3 3 # Bowel Movements 1 - Exam - Constitutional General appearance: cooperative, no acute distress - EENT Eyes: EOMI, PERRLA ENT: NA/AT, normal oropharynx - Respiratory Respiratory: bilateral: CTA - Cardiovascular Rhythm: regular - Gastrointestinal General gastrointestinal: normal bowel sounds, soft, tenderness - Integumentary Integumentary: pale - Neurologic Neurologic: CNII-XII intact - Musculoskeletal Musculoskeletal: generalized weakness, strength equal bilaterally - Psychiatric Psychiatric: A&O x's 3, appropriate affect, intact judgment & insight - Labs CBC & Chem 7: 02/01/21 09:02 02/01/21 09:02 Labs: Abnormal Lab Results - Last 24 Hours (Table) 02/01/21 02/01/21 02/01/21 Range/Units 09:02 09:02 09:02 WBC 11.2 H (3.8-10.6) k/uL RBC 3.02 L (3.80-5.40) m/uL Hgb 8.8 L (11.4-16.0) gm/dL Hct 28.5 L (34.0-46.0) % RDW 16.5 H (11.5-15.5) % Plt Count 748 H (150-450) k/uL Neutrophils # 8.2 H (1.3-7.7) k/uL BUN 3 L (7-17) mg/dL Creatinine 0.45 L (0.52-1.04) mg/dL AST 39 H (14-36) U/L Alkaline Phosphatase 318 H (38-126) U/L Total Protein 5.7 L (6.3-8.2) g/dL Albumin 2.8 L (3.5-5.0) g/dL Lipase 724 H (23-300) U/L Microbiology - Last 24 Hours (Table) 01/29/21 18:57 Blood Culture - Preliminary Blood No Growth after 48 hours 01/29/21 18:55 Blood Culture - Preliminary Blood No Growth after 48 hours Assessment and Plan (1) Abdominal pain Current Visit: Yes Status: Acute Code(s): R10.9 - UNSPECIFIED ABDOMINAL PAIN SNOMED Code(s): 40975933 (2) Bile leak, postoperative Current Visit: Yes Status: Acute Code(s): K91.89 - OTH POSTPROCEDURAL COMPLICATIONS AND DISORDERS OF DGSTV SYS; K83.8 - OTHER SPECIFIED DISEASES OF BILIARY TRACT SNOMED Code(s): 017324820 (3) Leukocytosis Current Visit: Yes Status: Acute Code(s): D72.829 - ELEVATED WHITE BLOOD CELL COUNT, UNSPECIFIED SNOMED Code(s): 744581847 (4) Thrombocytosis Current Visit: Yes Status: Acute Code(s): D47.3 - ESSENTIAL (HEMORRHAGIC) THROMBOCYTHEMIA SNOMED Code(s): 2429081 Plan: Thrombocytosis is reactive to multiple reasons: - Post op inflammation, Blood loss anemia (post operative and menses) - This should recover once acute inflammation is recovered - Ferritin Greater than 300, therefore hold off on Parental Iron at this time unless obvious bleeding Leukocytosis: - Reactive Anemia of inflammation COntinue to monitor CBC, no parental supplement required at this time Physician attest: I have completed the full history and physical and agreee with above dictation, dictated as a ascribe.
[2021-02-02] MEDS: HYDROmorphone 1 MG/ML 1 ML SYRINGE IVP PRN ×4 (04:29→16:04)
[2021-02-02] MEDS: PANTOPRAZOLE 40 MG TABLET PO SCH (06:29)
[2021-02-02 08:06] LABS: Anisocytosis Slight; Basophils % (A) 0 %; Eosinophils # (A) 0.1 k/uL (0-0.7); Eosinophils % (A) 1 %; HCT 28.5 % (34.0-46.0); HGB 8.8 gm/dL (11.4-16.0); Hypochromasia Marked; Lymphocytes # (A) 1.4 k/uL (1.0-4.8); Lymphocytes % (A) 11 %; MCH 29.3 pg (25.0-35.0); MCHC 31.1 g/dL (31.0-37.0); MCV 94.2 fL (80.0-100.0); Mean Platelet Volume 7.6; Monocytes # (A) 0.7 k/uL (0-1.0); Monocytes % (A) 5 %; Neutrophils # (A) 10.2 k/uL (1.3-7.7); Neutrophils % (A) 81 %; Platelet Count 780 k/uL (150-450); RBC 3.02 m/uL (3.80-5.40); RDW 16.9 % (11.5-15.5); WBC 12.5 k/uL (3.8-10.6)
[2021-02-02 08:08] LABS: ALT 21 U/L (4-34); AST 41 U/L (14-36); African American GFR (CKD) >90 (>60 ml/min/1.73 sqM); Albumin 2.6 g/dL (3.5-5.0); Alkaline Phosphatase 339 U/L (38-126); Anion Gap 6 mmol/L; Blood Urea Nitrogen 2 mg/dL (7-17); Carbon Dioxide 24 mmol/L (22-30); Chloride 106 mmol/L (98-107); Glucose 78 mg/dL (74-99); Lipase 54 U/L (23-300); Non-African American GFR(CKD) >90 (>60 ml/min/1.73 sqM); Potassium 3.9 mmol/L (3.5-5.1); Sodium 136 mmol/L (137-145); Total Bilirubin 0.7 mg/dL (0.2-1.3); Total Protein 5.5 g/dL (6.3-8.2)
[2021-02-02] MEDS: bisacodyL 5 MG TABLET.DR PO SCH (08:31)
[2021-02-02] MEDS: NICOTINE 14MG/24HR PATCH TRANSDERM SCH (08:31)
[2021-02-02] MEDS: PIPERACILLIN-TAZOBACTAM 3.375 GM in SODIUM CHLORIDE 0.9% 100 ML IVPB SCH ×2 (08:31→16:05)
[2021-02-02] MEDS: HEPARIN SODIUM,PORCINE/PF 5,000 UNIT/0.5 ML SYRINGE SQ SCH ×2 (08:33→21:40)
[2021-02-02] MEDS: SODIUM CHLORIDE 0.9% 1,000 ML IV SCH ×2 (09:02→16:08)
--- NOTE | 2021-02-02 10:42 | P.PN ---
Progress Note - Text Progress Note Date: 02/02/21 patient still has complaints of some pain. She feels better than yesterday. On exam vital signs are stable. Abdomen soft. Status post repERCP with stent placement. Patient will be discharged home tomorrow.
[2021-02-02] MEDS: ONDANSETRON 4 MG/2 ML VIAL IVP PRN ×2 (10:49→16:04)
[2021-02-02] MEDS: HYDROcodone/APAP 5-325MG 1 EACH TAB PO PRN ×3 (13:59→22:58)
--- NOTE | 2021-02-02 15:21 | P.PN ---
Subjective 33-year-old the female came in with complains of right upper quadrant abdominal pain radiating to the right shoulder area. Patient had a laparoscopic cholecystectomy on December 28 since then patient continued to have this pain. Patient had a HIDA scan and CT of the abdomen both were consistent with believe, with some subscapular extension possible bile leak. 2 surgery evaluated the patient and consulted gastroenterology for possible ERCP. 01/31/2021 Patient had an ERCP which showed biliary leak. Patient had sleep of count bile duct and had a stent in the common bile duct. Patient is otherwise clinically doing well abdominal pain improved. I saw her before the ERCP procedure at that time patient received Dilaudid because of which her pain is better. 02/01/2021 patient was Complaining of some diffuse abdominal pain in her life is minimally elevated secondary to ERCP no evidence of pancreatic that is clinically patient can be restarted back on diet. Patient has normal amylase. 02/02/2021 Patient is still complaining of abdominal pain all the abdomen is soft. Patient can continue soft diet. Patient has a mildly worsening leukocytosis patient remains on Zosyn Constitutional: Denied any fatigue denied any fever. Cardio vascular: denied any chest pain, palpitations Gastrointestinal as mentioned in the interval history Pulmonary: Denied any shortness of breath cough Neurologic denied any new focal deficits All inpatient medications were reviewed and appropriate changes in these medications as dictated in the interval history and assessment and plan. Objective - Vital Signs Vital signs: Vital Signs Temp 98.1 F 02/02/21 13:55 Pulse 99 02/02/21 13:55 Resp 18 02/02/21 13:55 BP 117/75 02/02/21 13:55 Pulse Ox 97 02/02/21 13:55 Intake & Output 02/01/21 02/02/21 02/02/21 18:59 06:59 18:59 Other: # Voids 2 2 - Exam PHYSICAL EXAMINATION: GENERAL: The patient is alert and oriented x3, not in any acute distress. Well developed, well nourished. HEENT: Pupils are round and equally reacting to light. EOMI. No scleral icterus. No conjunctival pallor. Normocephalic, atraumatic. No pharyngeal erythema. No thyromegaly. CARDIOVASCULAR: S1 and S2 present. No murmurs, rubs, or gallops. PULMONARY: Chest is clear to auscultation, no wheezing or crackles. ABDOMEN: Soft, nontender, nondistended, normoactive bowel sounds. No palpable organomegaly. MUSCULOSKELETAL: No joint swelling or deformity. EXTREMITIES: No cyanosis, clubbing, or pedal edema. NEUROLOGICAL: Gross neurological examination did not reveal any focal deficits. SKIN: No rashes. - Labs CBC & Chem 7: 02/02/21 06:20 02/02/21 06:20 Labs: Abnormal Lab Results - Last 24 Hours (Table) 02/02/21 02/02/21 Range/Units 06:20 06:20 WBC 12.5 H (3.8-10.6) k/uL RBC 3.02 L (3.80-5.40) m/uL Hgb 8.8 L (11.4-16.0) gm/dL Hct 28.5 L (34.0-46.0) % RDW 16.9 H (11.5-15.5) % Plt Count 780 H (150-450) k/uL Neutrophils # 10.2 H (1.3-7.7) k/uL Sodium 136 L (137-145) mmol/L BUN 2 L (7-17) mg/dL Calcium 8.0 L (8.4-10.2) mg/dL AST 41 H (14-36) U/L Alkaline Phosphatase 339 H (38-126) U/L Total Protein 5.5 L (6.3-8.2) g/dL Albumin 2.6 L (3.5-5.0) g/dL Microbiology - Last 24 Hours (Table) 01/29/21 18:57 Blood Culture - Preliminary Blood No Growth after 72 hours 01/29/21 18:55 Blood Culture - Preliminary Blood No Growth after 72 hours Assessment and Plan Plan: -Leukocytosis: Secondary to biliary leak patient is presently on Zosyn which will be continued, patient had ERCP and found to have biliary leak, common bile duct stent was placed. -Elevated lipase secondary to ERCP procedure no evidence of pancreatitis, patient can continue with soft diet -Gases visual reflux disease -Thrombocytosis: Reactive thrombocytosis secondary to surgery and infection no further intervention is necessary at this time -Leukocytosis reactive -Nicotine use: Counseling was provided
[2021-02-03] MEDS: PIPERACILLIN-TAZOBACTAM 3.375 GM in SODIUM CHLORIDE 0.9% 100 ML IVPB SCH ×2 (00:20→08:15)
[2021-02-03] MEDS: SODIUM CHLORIDE 0.9% 1,000 ML IV SCH (07:28)
[2021-02-03 08:13] VITALS: BP 126/79; PULSE 108; RESP 18; TEMP 98.1
[2021-02-03] MEDS: PANTOPRAZOLE 40 MG TABLET PO SCH (08:15)
[2021-02-03] MEDS: bisacodyL 5 MG TABLET.DR PO SCH (08:15)
[2021-02-03] MEDS: NICOTINE 14MG/24HR PATCH TRANSDERM SCH (08:15)
[2021-02-03] MEDS: HYDROcodone/APAP 5-325MG 1 EACH TAB PO PRN ×2 (08:15→11:51)
[2021-02-03] MEDS: HEPARIN SODIUM,PORCINE/PF 5,000 UNIT/0.5 ML SYRINGE SQ SCH (08:17)
--- NOTE | 2021-02-03 08:46 | P.PN ---
Subjective Progress Note Date: 02/02/21 Principal diagnosis: Bile leak, abdominal pain The patient is seen lying in bed. Currently she is reporting improvement in symptoms of abdominal pain. She is tolerating her diet at this time. Objective - Vital Signs Vital signs: Vital Signs Temp 98.5 F 02/02/21 08:25 Pulse 102 H 02/02/21 08:25 Resp 16 02/02/21 08:25 BP 120/69 02/02/21 08:25 Pulse Ox 98 02/02/21 08:25 Intake & Output 02/01/21 02/02/21 02/02/21 18:59 06:59 18:59 Other: # Voids 2 2 - Exam On physical examination, patient appears comfortable in no apparent distress. HEAD: Normocephalic, atraumatic. EYES: No scleral icterus. No conjunctival injection. MOUTH: No lesions, tongue midline. NECK: Trachea midline, no gross abnormalities. ABDOMEN: Soft, nontender to palpation. Bowel sounds are positive. No organomegaly. No guarding or rigidity. EXTREMITIES: No pedal edema. SKIN: No rashes, no jaundice. NEUROLOGIC: Alert and oriented x3. No focal deficits. - Labs CBC & Chem 7: 02/02/21 06:20 02/02/21 06:20 Labs: Abnormal Lab Results - Last 24 Hours (Table) 02/02/21 02/02/21 Range/Units 06:20 06:20 WBC 12.5 H (3.8-10.6) k/uL RBC 3.02 L (3.80-5.40) m/uL Hgb 8.8 L (11.4-16.0) gm/dL Hct 28.5 L (34.0-46.0) % RDW 16.9 H (11.5-15.5) % Plt Count 780 H (150-450) k/uL Neutrophils # 10.2 H (1.3-7.7) k/uL Sodium 136 L (137-145) mmol/L BUN 2 L (7-17) mg/dL Calcium 8.0 L (8.4-10.2) mg/dL AST 41 H (14-36) U/L Alkaline Phosphatase 339 H (38-126) U/L Total Protein 5.5 L (6.3-8.2) g/dL Albumin 2.6 L (3.5-5.0) g/dL Microbiology - Last 24 Hours (Table) 01/29/21 18:57 Blood Culture - Preliminary Blood No Growth after 72 hours 01/29/21 18:55 Blood Culture - Preliminary Blood No Growth after 72 hours Assessment and Plan (1) Bile leak, postoperative Narrative/Plan: 35-year-old female with a medical history significant for GERD, hiatal hernia, tobacco abuse and cholecystectomy on 12/28/20. She presents to the hospital with persistent right upper quadrant abdominal pain. HIDA imaging suggestive of a bile leak. Status post ERCP on 02/27/21 with findings of bile leak status post sphincterotomy, cholangiogram, balloon sweep and stent placement. Mildly elevated lipase today 724 with normal amylase of 91 yesterday which is improved today, doubt post-ERCP pancreatitis, however cannot be totally ruled out. Patient currently reporting improvement in pain and would like a diet advance. Current Visit: Yes Status: Acute Code(s): K91.89 - OTH POSTPROCEDURAL COMPLICATIONS AND DISORDERS OF DGSTV SYS; K83.8 - OTHER SPECIFIED DISEASES OF BILIARY TRACT SNOMED Code(s): 021884265 (2) Abdominal pain Current Visit: Yes Status: Acute Code(s): R10.9 - UNSPECIFIED ABDOMINAL PAIN SNOMED Code(s): 81820012 (3) Leukocytosis Current Visit: Yes Status: Acute Code(s): D72.829 - ELEVATED WHITE BLOOD CELL COUNT, UNSPECIFIED SNOMED Code(s): 720168427 Plan: Supportive care Okay for diet as tolerated Continue broad-spectrum antibiotic therapy Status post successful stent placement with double pigtail plastic stent placed in CBD during ERCP, patient will need repeat procedure with stent removal in 6-8 weeks and will need follow-up in the GI clinic in the next 1-2 weeks Thank you for allowing us to participate in the care of the patient, okay for discharge from GI would otherwise medically stable with follow-up in the GI clinic
--- NOTE | 2021-02-03 11:15 | P.DS ---
Providers Date of admission: 01/29/21 17:30 Expected date of discharge: 02/03/21 Attending physician: Kareem Carpenter Consults: 01/29/21 17:56 Consult Physician Routine Consulting Provider: Verna Bess Consult Reason/Comments: medical consult Do you want consulting provider notified?: Yes Consult Physician Routine Consulting Provider: Chandra Mccullough Consult Reason/Comments: thrombocytosis Do you want consulting provider notified?: Yes Primary care physician: Stated None Hospital Course: This is a 35-year-old female who's in the hospital with abdominal pain. Patient was found to have a biloma. She underwent ERCP with stent placement. Please see hospital chart for details. Plan - Discharge Summary New Discharge Prescriptions: No Action Wheat Dextrin [Benefiber] 2 tsp PO HS Acetaminophen Tab [Tylenol Tab] 1,000 mg PO Q6H PRN PRN Reason: Pain Discharge Medication List Acetaminophen Tab [Tylenol Tab] 1,000 mg PO Q6H PRN 01/29/21 [History] Wheat Dextrin [Benefiber] 2 tsp PO HS 01/29/21 [History] Follow up Appointment(s)/Referral(s): None,Stated [Primary Care Provider] - 1-2 days Patient Instructions/Handouts: Acute Abdominal Pain (GEN)
--- NOTE | 2021-02-03 12:31 | P.PN ---
Subjective 33-year-old the female came in with complains of right upper quadrant abdominal pain radiating to the right shoulder area. Patient had a laparoscopic cholecystectomy on December 28 since then patient continued to have this pain. Patient had a HIDA scan and CT of the abdomen both were consistent with believe, with some subscapular extension possible bile leak. 2 surgery evaluated the patient and consulted gastroenterology for possible ERCP. 01/31/2021 Patient had an ERCP which showed biliary leak. Patient had sleep of count bile duct and had a stent in the common bile duct. Patient is otherwise clinically doing well abdominal pain improved. I saw her before the ERCP procedure at that time patient received Dilaudid because of which her pain is better. 02/01/2021 patient was Complaining of some diffuse abdominal pain in her life is minimally elevated secondary to ERCP no evidence of pancreatic that is clinically patient can be restarted back on diet. Patient has normal amylase. 02/02/2021 Patient is still complaining of abdominal pain all the abdomen is soft. Patient can continue soft diet. Patient has a mildly worsening leukocytosis patient remains on Zosyn 02/03/2021 Patient's abdominal pain improved patient is being discharged today Constitutional: Denied any fatigue denied any fever. Cardio vascular: denied any chest pain, palpitations Gastrointestinal as mentioned in the interval history Pulmonary: Denied any shortness of breath cough Neurologic denied any new focal deficits All inpatient medications were reviewed and appropriate changes in these medications as dictated in the interval history and assessment and plan. Objective - Vital Signs Vital signs: Vital Signs Temp 98.1 F 02/03/21 08:11 Pulse 108 H 02/03/21 08:11 Resp 18 02/03/21 08:11 BP 126/79 02/03/21 08:11 Pulse Ox 95 02/03/21 08:11 Intake & Output 02/02/21 02/03/21 02/03/21 18:59 06:59 18:59 Intake Total 1480 Balance 1480 Intake: Intake, IV Titration 1000 Amount Sodium Chloride 0.9% 1, 1000 000 ml @ 100 mls/hr IV . Q10H [facility] Rx#:[id number] Oral 480 Other: # Voids 2 - Exam PHYSICAL EXAMINATION: GENERAL: The patient is alert and oriented x3, not in any acute distress. Well developed, well nourished. HEENT: Pupils are round and equally reacting to light. EOMI. No scleral icterus. No conjunctival pallor. Normocephalic, atraumatic. No pharyngeal erythema. No thyromegaly. CARDIOVASCULAR: S1 and S2 present. No murmurs, rubs, or gallops. PULMONARY: Chest is clear to auscultation, no wheezing or crackles. ABDOMEN: Soft, nontender, nondistended, normoactive bowel sounds. No palpable organomegaly. MUSCULOSKELETAL: No joint swelling or deformity. EXTREMITIES: No cyanosis, clubbing, or pedal edema. NEUROLOGICAL: Gross neurological examination did not reveal any focal deficits. SKIN: No rashes. - Labs CBC & Chem 7: 02/02/21 06:20 02/02/21 06:20 Labs: Microbiology - Last 24 Hours (Table) 01/29/21 18:55 Blood Culture - Preliminary Blood No Growth after 96 hours 01/29/21 18:57 Blood Culture - Preliminary Blood No Growth after 96 hours Assessment and Plan Plan: -Leukocytosis: Secondary to biliary leak patient is presently on Zosyn which will be continued, patient had ERCP and found to have biliary leak, common bile duct stent was placed. Patient's abdominal pain significantly improved and is being discharged today -Elevated lipase secondary to ERCP procedure no evidence of pancreatitis, patient is tolerating diet well. -Gases visual reflux disease -Thrombocytosis: Reactive thrombocytosis secondary to surgery and infection no further intervention is necessary at this time -Leukocytosis reactive -Nicotine use: Counseling was provided Patient can be discharged from medical perspective
== END 2021-02-03 11:53 | disposition home or self-care (01) | DRG 444 ==
LOC: EC 10:43 → 5NMEDONC 17:30 → 6PED 02-01 09:42
PROVIDERS: ADMIT Surgery; ATTEND Surgery
PROC: 0F798DZ Dilation of Common Bile Duct with Intraluminal Device, Via Natural or Artificial Opening Endoscopic (ICD-10-PCS; principal; 2021-01-31 12:00)
DX: K83.8 Other specified diseases of biliary tract (principal); K85.90 Acute pancreatitis without necrosis or infection, unspecified; D47.3 Essential (hemorrhagic) thrombocythemia; D50.9 Iron deficiency anemia, unspecified; F17.210 Nicotine dependence, cigarettes, uncomplicated; Y83.8 Other surgical procedures as the cause of abnormal reaction of the patient, or of later complication, without mention of misadventure at the time of the procedure; Z80.1 Family history of malignant neoplasm of trachea, bronchus and lung; Z90.49 Acquired absence of other specified parts of digestive tract; Z98.51 Tubal ligation status; Z98.890 Other specified postprocedural states; Z86.14 Personal history of Methicillin resistant Staphylococcus aureus infection; Z88.5 Allergy status to narcotic agent
CPT/HCPCS: 36415; 43262; 43274; 71046; 74177; 74330; 78226; 80053; 81001; 81025; 82150; 82728; 83540; 83550; 83690; 85025; 85045; 85610; 85730; 87040; 87635; 96374; 96375; 99285

== ENCOUNTER 2021-03-26 09:13 | Day surgery (SDC) | payer OTHER ==
[2021-03-22 15:46] VITALS: BMI 25.9
[2021-03-26] MEDS ORDERED: INDOMETHACIN 50MG SUPPOSITORY RECTAL STA (10:31)
[2021-03-26] MEDS: LACTATED RINGERS 1,000 ML IV SCH ×2 (10:44→11:03)
[2021-03-26] MEDS ORDERED: SCOPOLAMINE 1.5MG/72HR PATCH TRANSDERM ONE (10:48)
[2021-03-26 10:59] LABS: Anisocytosis Slight; Basophils % (A) 0 %; Eosinophils # (A) 0.1 k/uL (0-0.7); Eosinophils % (A) 1 %; HCT 42.3 % (34.0-46.0); Lymphocytes # (A) 1.5 k/uL (1.0-4.8); Lymphocytes % (A) 12 %; MCH 30.5 pg (25.0-35.0); MCHC 32.1 g/dL (31.0-37.0); Mean Platelet Volume 7.6; Monocytes # (A) 0.5 k/uL (0-1.0); Monocytes % (A) 5 %; Neutrophils # (A) 9.6 k/uL (1.3-7.7); Neutrophils % (A) 81 %; Platelet Count 338 k/uL (150-450); RBC 4.45 m/uL (3.80-5.40); RDW 18.6 % (11.5-15.5); WBC 11.8 k/uL (3.8-10.6)
[2021-03-26] MEDS: LEVOFLOXACIN 500MG-D5W PMX 500 MG in DEXTROSE/WATER 1 100ML.BAG IVPB STA ×2 (11:00→11:03)
[2021-03-26] MEDS ORDERED: PROPOFOL 10 MG/ML 20 ML VIAL IV ONE (11:03)
[2021-03-26] MEDS ORDERED: LIDOCAINE 1% INJ 10MG/ML (20 ML MDV) ONE (11:03)
[2021-03-26] MEDS ORDERED: fentaNYL (PF) 50 MCG/ML 2 ML AMP ONE (11:03)
[2021-03-26] MEDS ORDERED: diphenhydrAMINE 50 MG/ML 1 ML VIAL ONE (11:03)
[2021-03-26] MEDS ORDERED: ROCURONIUM 10 MG/ML (5 ML VIAL) IV ONE (11:03)
[2021-03-26] MEDS ORDERED: MIDAZOLAM 2 MG/2 ML VIAL ONE (11:03)
[2021-03-26] MEDS ORDERED: KETAMINE 10 MG/ML 20 ML VIAL ONE (11:03)
[2021-03-26 11:12] LABS: ALT 17 U/L (4-34); AST 31 U/L (14-36); African American GFR (CKD) >90 (>60 ml/min/1.73 sqM); Albumin 4.3 g/dL (3.5-5.0); Alkaline Phosphatase 74 U/L (38-126); Anion Gap 9 mmol/L; Blood Urea Nitrogen 12 mg/dL (7-17); Calcium 9.5 mg/dL (8.4-10.2); Carbon Dioxide 22 mmol/L (22-30); Chloride 108 mmol/L (98-107); Glucose 102 mg/dL (74-99); Non-African American GFR(CKD) >90 (>60 ml/min/1.73 sqM); Potassium 4.2 mmol/L (3.5-5.1); Sodium 139 mmol/L (137-145); Total Bilirubin 0.2 mg/dL (0.2-1.3); Total Protein 7.2 g/dL (6.3-8.2)
[2021-03-26 11:12] LABS: HGB 13.6 gm/dL (11.4-16.0)
[2021-03-26 11:39] LABS: INR 0.9 (<1.2); Partial Thromboplastin Time 23.5 sec (22.0-30.0); Prothrombin Time 10.2 sec (9.0-12.0)
[2021-03-26] MEDS ORDERED: IOPAMIDOL-300 50ML BTL MISCELLANE ONE (11:45)
[2021-03-26] MEDS ORDERED: IV FLUID CONTINUATION 1,000 ML IV ONE (11:55)
--- NOTE | 2021-03-26 11:56 | P.PCN ---
Date of Procedure: 03/26/21 Description of Procedure: Brief history: : 35-year-old female with a history of hiatal hernia, GERD, tobacco abuse, and cholecystectomy on 12/28/20 who presented to the hospital for evaluation of abdominal pain. The patient reports persistent pain in the right upper quadrant of her abdomen which is present since her laparoscopic cholecystectomy. She denies any associated fevers or chills. On presentation laboratory evaluation has been significant for WBC 10.1, hemoglobin 9.1, platelet count 791,000, INR 1, total bilirubin 0.6, alkaline phosphatase 199, AST 31, ALT 20, amylase 39, and lipase of 45. She underwent imaging with a HIDA scan which showed a probable bile leak and subsequently underwent ERCP with cholangiogram, sphincterotomy, balloon sweep of the duct and placement of a double pigtail plastic stent for treatment of the bile leak. She was seen in the clinic doing very well after her procedure and is scheduled for repeat ERCP for stent removal. Procedure performed: ERCP with cholangiogram, balloon sweep and removal of double pigtail plastic stent Preoperative diagnoses: Bile leak, right upper quadrant abdominal pain, stent removal IV sedation per anesthesia Estimated blood loss: Minimal. Procedure: After informed consent was obtained from the patient and after the risks benefits and complications including bleeding perforation and pancreatitis explained in detail the patient was brought into the endoscopy unit. The patient was placed in prone position and IV conscious sedation was administered by anesthesia under continuous monitoring. The Olympus side-viewing duodenoscope was then inserted into the mouth and esophagus intubated without any difficulty. The scope was gradually advanced into the stomach and duodenum. The major papilla was identified without any difficulty, with evidence of prior sphincterotomy and stent placement. Previously placed double pigtail plastic stent was snared and removed using the side-viewing endoscope. Cannulation of the major papilla was then performed using a guidewire which was passed through the CBD and into the common hepatic duct. Dye was then injected and cholangiogram showed a diffusely dilated CBD with no filling defects or bile leak noted. A balloon extractor was then passed over the wire into the bile duct which was serially swept with good bile flow noted. The pancreatic duct was not cannulated or injected. The patient tolerated the procedure well. Impression: History of bile leak. ERCP with cholangiogram, balloon sweep of the bile duct and removal of the previously placed double pigtail plastic stent. There was no evidence of bile leak on cholangiogram. Recommendations: The findings of this examination were discussed with the patient as well as a family/father. Okay to resume diet. Okay to resume medications. Continue to monitor for signs and symptoms of pancreatitis and other possible complications. Okay for discharge today when otherwise medically stable.
[2021-03-26 12:03] VITALS: TEMP 97
[2021-03-26 12:19] VITALS: RESP 16
[2021-03-26] MEDS ORDERED: IBUPROFEN 200 MG TAB PO ONE (12:40)
--- NOTE | 2021-03-26 12:43 | FL ---
EXAMINATION TYPE: FL ERCP HISTORY: Fluoroscopy time Impression: 1. Fluoroscopy support of 8 seconds provided to the referring physician.
[2021-03-26 12:53] VITALS: BP 136/92; PULSE 73
== END 2021-03-26 13:04 | disposition home or self-care (01) ==
LOC: ORWHC2ENDO 09:13
PROVIDERS: ATTEND Internal Medicine
DX: Z45.89 Encounter for adjustment and management of other implanted devices (principal); K21.9 Gastro-esophageal reflux disease without esophagitis; K44.9 Diaphragmatic hernia without obstruction or gangrene; Z90.49 Acquired absence of other specified parts of digestive tract; F17.210 Nicotine dependence, cigarettes, uncomplicated; Z88.5 Allergy status to narcotic agent; Z79.899 Other long term (current) drug therapy
CPT/HCPCS: 81025; 80053; 85025; 85610; 85730; 74330; 43275; J2250; J1200; J1956; J2001; J3010; J2704; Q9967

== ENCOUNTER 2023-07-10 04:52 | Emergency (ER) | payer OTHER ==
[2023-07-10] MEDS ORDERED: SODIUM CHLORIDE 0.9% 1,000 ML IV STA (05:12)
[2023-07-10] MEDS ORDERED: AMPICILLIN-SULBACTAM 3 GM in SODIUM CHLORIDE 0.9% 100 ML IVPB STA (05:12)
[2023-07-10] MEDS ORDERED: DEXAMETHASONE SOD PHOSPHATE 10 MG/ML 1 ML VIAL IVP STA (05:12)
[2023-07-10] MEDS ORDERED: KETOROLAC 15 MG/ML 1 ML VIAL IVP STA (05:12)
[2023-07-10] MEDS ORDERED: MORPHINE SULFATE 4 MG/ML SYRINGE IVP STA (05:12)
[2023-07-10 05:15] VITALS: RESP 18; TEMP 98
[2023-07-10] MEDS ORDERED: ONDANSETRON 4 MG/2 ML VIAL IVP STA (05:50)
[2023-07-10 05:57] LABS: Basophils % (A) 0 %; Eosinophils # (A) 0.3 k/uL (0-0.7); Eosinophils % (A) 2 %; HCT 40.5 % (34.0-46.0); HGB 13.7 gm/dL (11.4-16.0); Lymphocytes # (A) 1.2 k/uL (1.0-4.8); Lymphocytes % (A) 7 %; MCH 34.1 pg (25.0-35.0); MCHC 33.9 g/dL (31.0-37.0); MCV 100.4 fL (80.0-100.0); Mean Platelet Volume 7.7; Monocytes # (A) 0.5 k/uL (0-1.0); Monocytes % (A) 3 %; Neutrophils # (A) 14.2 k/uL (1.3-7.7); Neutrophils % (A) 87 %; Platelet Count 258 k/uL (150-450); RBC 4.04 m/uL (3.80-5.40); RDW 12.4 % (11.5-15.5); WBC 16.3 k/uL (3.8-10.6)
--- NOTE | 2023-07-10 06:03 | ED ---
ENT HPI - General Chief complaint: Dental/Oral Stated complaint: Left Eye Swelling Time Seen by Provider: 07/10/23 05:06 Source: patient, RN notes reviewed, old records reviewed Mode of arrival: ambulatory Limitations: no limitations - History of Present Illness Initial comments: This is a 37-year-old female to the emergency department for evaluation of severe tooth pain facial pain and facial swelling. Patient states she went to urgent care yesterday was found to have a dental infection. States she has severe history of dental caries with dental abscess. No new trauma no active fevers. Pain swelling over patient I or significant and woke her up from sleep this morning. MD complaint: tooth pain, other (Facial pain or eye pain left cheek pain) -: days(s) Severity: severe Severity scale (1-10): 8 Consistency: constant, intermittent Worsens with: none Context- Dental: history of dental caries Associated Symptoms: other (0) - Related Data Home Medications Medication Instructions Recorded Confirmed Ibuprofen [Motrin] 800 mg PO Q8H PRN 07/11/23 07/11/23 Previous Rx's Medication Instructions Recorded Amoxic-Pot Clav 875-125Mg 1 tab PO Q12HR 7 Days #14 tab 07/12/23 [Augmentin 875-125] HYDROcodone/APAP 5-325MG [[place] 1 tab PO Q4HR PRN 3 Days #18 tab 07/12/23 5-325] Allergies Allergy/AdvReac Type Severity Reaction Status Date / Time codeine AdvReac Nausea & Verified 07/11/23 21:24 Vomiting Review of Systems ROS Statement: Those systems with pertinent positive or pertinent negative responses have been documented in the HPI. ROS Other: All systems not noted in ROS Statement are negative. Past Medical History Past Medical History: GERD/Reflux Additional Past Medical History / Comment(s): bile leak, Hiatal Hernia. History of Any Multi-Drug Resistant Organisms: MRSA Date of last positivie culture/infection: 2012 MDRO Source:: abd Past Surgical History: Section, Cholecystectomy, Tubal Ligation Additional Past Surgical History / Comment(s): ERCP with bile leak, Liver biopsy, EGD. 2 c-sections Past Anesthesia/Blood Transfusion Reactions: Motion Sickness Past Psychological History: No Psychological Hx Reported Smoking Status: Current every day smoker Past Alcohol Use History: Occasional Past Drug Use History: None Reported - Past Family History Father Family Medical History: Cancer Additional Family Medical History / Comment(s): Lung Cancer General Exam Limitations: no limitations General appearance: alert, in no apparent distress Head exam: Present: atraumatic, normocephalic, normal inspection Eye exam: Present: normal appearance, PERRL, EOMI, periorbital tenderness (Left- sided), other (Severe left-sided facial swelling). Absent: scleral icterus, conjunctival injection, periorbital swelling ENT exam: Present: normal exam, mucous membranes moist Neck exam: Present: normal inspection. Absent: tenderness, meningismus, lymphadenopathy Respiratory exam: Present: normal lung sounds bilaterally. Absent: respiratory distress, wheezes, rales, rhonchi, stridor Cardiovascular Exam: Present: regular rate, normal rhythm, normal heart sounds. Absent: systolic murmur, diastolic murmur, rubs, gallop, clicks GI/Abdominal exam: Present: soft, normal bowel sounds. Absent: distended, tende rness, guarding, rebound, rigid Extremities exam: Present: normal inspection, full ROM, normal capillary refill. Absent: tenderness, pedal edema, joint swelling, calf tenderness Back exam: Present: normal inspection Neurological exam: Present: alert, oriented X3, CN II-XII intact Psychiatric exam: Present: normal affect, normal mood Skin exam: Present: warm, dry, intact, normal color. Absent: rash Course Vital Signs 07/10/23 07/10/23 04:57 07:23 Temperature 98 F Pulse Rate 97 91 Respiratory 18 18 Rate Blood Pressure 139/90 112/61 O2 Sat by Pulse 100 100 Oximetry - Reevaluation(s) Reevaluation #1: 07/10/23 06:02 Medical record is reviewed Reevaluation #2: 07/10/23 06:02 Patient symptoms unchanged Reevaluation #3: 07/10/23 06:02 Patient informed results questions answered Reevaluation #4: 07/10/23 06:03 Was pt. sent in by a medical professional or institution (, PA, MACHINE CRATER, urgent care, hospital, or residential...) When possible be specific @ -no Did you speak to anyone other than the patient for history (EMS, parent, family, police, friend...)? What history was obtained from this source @ -no Did you review nursing and triage notes (agree or disagree)? Why? @ -agree Are old charts reviewed (outside hosp., previous admission, EMS record, old EKG, old radiological studies, urgent care reports/EKG's, residential records)? Report findings @ -yes Differential Diagnosis (chest pain, altered mental status, abdominal pain women, abdominal pain men, vaginal bleeding, weakness, fever, dyspnea, syncope, headache, dizziness, GI bleed, back pain, seizure, CVA, palpatations, mental health, musculoskeletal)? @ -prior EKG interpreted by me (3pts min.). @ -no X-rays interpreted by me (1pt min.). @ -no CT interpreted by me (1pt min.). @ -yes U/S interpreted by me (1pt. min.). @ -no What testing was considered but not performed or refused? (CT, X-rays, U/S, labs)? Why? @ -none What meds were considered but not given or refused? Why? @ -none Did you discuss the management of the patient with other professionals (professionals i.e. , PA, MACHINE CRATER, lab, RT, psych nurse, geriatric social work professor, employment adjudicator, teacher, special loan officer, case packer)? Give summary @ -no Was smoking cessation discussed for >3mins.? @ -no Was critical care preformed (if so, how long)? @ -no Were there social determinants of health that impacted care today? How? (Homelessness, low income, unemployed, alcoholism, drug addiction, transportation, low edu. Level, literacy, decrease access to med. care, usp, rehab)? @ -none Was there de-escalation of care discussed even if they declined (Discuss DNR or withdrawal of care, Hospice)? DNR status @ -no What co-morbidities impacted this encounter? (DM, HTN, Smoking, COPD, CAD, Cancer, CVA, ARF, Chemo, Hep., AIDS, mental health diagnosis, sleep apnea, morbid obesity)? @ -none Was patient admitted / discharged? Hospital course, mention meds given and route, prescriptions, significant lab abnormalities, going to OR and other pertinent info. @ - 38 female to the emergency department with significant facial swelling. Patient does have dental abscess likely tooth related. No other significant findings. Patient can be discharged home on antibiotics Discharge Undiagnosed new problem with uncertain prognosis? @ -no Drug Therapy requiring intensive monitoring for toxicity (Heparin, Nitro, Insulin, Cardizem)? @ -no Were any procedures done? @ -no Diagnosis/symptom? @ -Dental abscess Acute, or Chronic, or Acute on Chronic? @ -Acute Uncomplicated (without systemic symptoms) or Complicated (systemic symptoms)? @ -Complicated Side effects of treatment? @ -no Exacerbation, Progression, or Severe Exacerbation? @ -exacerbation Poses a threat to life or bodily function? How? (Chest pain, [place], [place], pneumonia, PE, COPD, DKA, ARF, appy, cholecystitis, CVA, Diverticulitis, Homicidal, Suicidal, threat to staff... and all critical care pts) @ -no Medical Decision Making - Medical Decision Making 38 female to the emergency department with significant facial swelling. Patient does have dental abscess likely tooth related. No other significant findings. Patient can be discharged home on antibiotics - Lab Data Result diagrams: 07/10/23 05:23 07/10/23 05:23 Lab Results 07/10/23 07/10/23 07/10/23 Range/Units 05:23 05:23 05:23 WBC 16.3 H (3.8-10.6) k/uL RBC 4.04 (3.80-5.40) m/uL Hgb 13.7 (11.4-16.0) gm/dL Hct 40.5 (34.0-46.0) % MCV 100.4 H (80.0-100.0) fL MCH 34.1 (25.0-35.0) pg MCHC 33.9 (31.0-37.0) g/dL RDW 12.4 (11.5-15.5) % Plt Count 258 (150-450) k/uL MPV 7.7 Neutrophils % 87 % Lymphocytes % 7 % Monocytes % 3 % Eosinophils % 2 % Basophils % 0 % Neutrophils # 14.2 H (1.3-7.7) k/uL Lymphocytes # 1.2 (1.0-4.8) k/uL Monocytes # 0.5 (0-1.0) k/uL Eosinophils # 0.3 (0-0.7) k/uL Basophils # 0.0 (0-0.2) k/uL Sodium 136 L (137-145) mmol/L Potassium 4.0 (3.5-5.1) mmol/L Chloride 105 (98-107) mmol/L Carbon Dioxide 23 (22-30) mmol/L Anion Gap 8 mmol/L BUN 13 (7-17) mg/dL Creatinine 0.61 (0.52-1.04) mg/dL Est GFR (CKD-EPI)AfAm >90 (>60 ml/min/1.73 sqM) Est GFR (CKD-EPI)NonAf >90 (>60 ml/min/1.73 sqM) Glucose 118 H (74-99) mg/dL Calcium 8.8 (8.4-10.2) mg/dL Total Bilirubin 0.7 (0.2-1.3) mg/dL AST 25 (14-36) U/L ALT 19 (4-34) U/L Alkaline Phosphatase 56 (38-126) U/L Troponin I <0.012 (0.000-0.034) ng/mL Total Protein 6.5 (6.3-8.2) g/dL Albumin 3.9 (3.5-5.0) g/dL - Radiology Data Radiology results: report reviewed (CT face is negative for acute disease), image reviewed Disposition Clinical Impression: Dental abscess, Dental caries Disposition: HOME SELF-CARE Instructions (If sedation given, give patient instructions): Dental Abscess (ED), Toothache (ED) Is patient prescribed a controlled substance at d/c from ED?: No Referrals: None,Stated [Primary Care Provider] - 1-2 days Time of Disposition: 07:00
[2023-07-10 06:10] LABS: ALT 19 U/L (4-34); AST 25 U/L (14-36); African American GFR (CKD) >90 (>60 ml/min/1.73 sqM); Albumin 3.9 g/dL (3.5-5.0); Alkaline Phosphatase 56 U/L (38-126); Anion Gap 8 mmol/L; Blood Urea Nitrogen 13 mg/dL (7-17); Calcium 8.8 mg/dL (8.4-10.2); Carbon Dioxide 23 mmol/L (22-30); Chloride 105 mmol/L (98-107); Glucose 118 mg/dL (74-99); Non-African American GFR(CKD) >90 (>60 ml/min/1.73 sqM); Sodium 136 mmol/L (137-145); Total Bilirubin 0.7 mg/dL (0.2-1.3); Total Protein 6.5 g/dL (6.3-8.2)
--- NOTE | 2023-07-10 06:55 | CT ---
EXAMINATION TYPE: CT facial bones w con CT DLP: 480.4 mGycm, Automated exposure control for dose reduction was used. DATE OF EXAM: 07/10/2023 6:13 AM COMPARISON: None. CLINICAL INDICATION:Female, 37 years old with history of abscess; [facility], TECHNIQUE: Multiple axial CT images were obtained of the facial bones soft tissue and bone windows af ter the uneventful administration of 100 cc of Isovue-300 intravenously. Coronal, axial and sagittal reformatted images were also provided in soft tissue and bone windows and submitted for interpretati on. Additional 3-D reformatted images were obtained on a separate workstation. FINDINGS: There is no evidence of fracture, subluxation, dislocation. Mild left infraorbital and left maxillary soft tissue fat stranding with swelling. The retrobulbar fat is clear bilaterally. No organized flui d collection identified to suggest abscess. The orbital contents are unremarkable. The right submandi bular gland appears surgically absent. Enlarged bilateral submandibular and jugular enlarged lymph no rivera identified. Examples include a right submandibular enlarged lymph node measuring 1 cm short axis. The vasculature appears patent. Dental cavity with periapical lucency involving the left maxillary l ateral incisor and left maxillary first molar. The temporal-mandibular joints appear symmetric. The v isualized portion of the paranasal sinuses appear clear. IMPRESSION: 1. No acute facial bone fracture. 2. Left maxillary lateral incisor and first molar dental cavities. There are inflammatory change invo lving the left infraorbital and left maxillary soft tissues without definitive abscess identified. 3. Cervical lymphadenopathy which is likely reactive.
[2023-07-10 07:35] VITALS: BP 112/61; PULSE 91
== END 2023-07-10 07:24 | disposition home or self-care (01) ==
LOC: EC 04:52
DX: K04.7 Periapical abscess without sinus (principal); K02.9 Dental caries, unspecified; K21.9 Gastro-esophageal reflux disease without esophagitis; F17.200 Nicotine dependence, unspecified, uncomplicated; Z88.5 Allergy status to narcotic agent
CPT/HCPCS: 36415; 80053; 84484; 85025; 87040; 70487; 99284; 96365; 96375 ×4; 96361; J2270; J1100; J2405; J0295; J1885; Q9967

== ENCOUNTER 2023-07-11 19:35 | Observation (INO) | payer OTHER ==
[2023-07-11] MEDS ORDERED: MORPHINE SULFATE 2 MG/ML SYRINGE IVP STA ×2 (20:03→22:14)
[2023-07-11] MEDS ORDERED: AMPICILLIN-SULBACTAM 3 GM in SODIUM CHLORIDE 0.9% 100 ML IVPB STA (20:03)
[2023-07-11] MEDS ORDERED: DEXAMETHASONE SOD PHOSPHATE 4 MG/ML 1 ML VIAL IVP STA (20:03)
[2023-07-11] MEDS ORDERED: SODIUM CHLORIDE 0.9% 1,000 ML IV STA (20:03)
[2023-07-11] MEDS ORDERED: ONDANSETRON 4 MG/2 ML VIAL IVP STA ×2 (20:03→22:15)
--- NOTE | 2023-07-11 20:48 | ED ---
ENT HPI - General Chief complaint: Dental/Oral Stated complaint: recheck Time Seen by Provider: 07/11/23 19:51 Source: patient, RN notes reviewed Mode of arrival: ambulatory Limitations: no limitations - History of Present Illness Initial comments: Patient is a 37-year-old female presented ER with a chief complaint of facial swelling/dental infection. Two days ago patient was seen at urgent care and prescribed penicillin for a dental infection. Patient states that 3 AM on 07/10/23, she was seen here and received IV antibiotics which improved her symptoms at that time and she was discharged home to continue the penicillin. Patient states today her face swelled back up and her pain has increased. Patient denies any abscess or drainage in her mouth. Denies any fevers, chills, night sweats, difficulty swallowing or handling her secretions, difficulty breathing. - Related Data Home Medications Medication Instructions Recorded Confirmed Ibuprofen [Motrin] 800 mg PO Q8H PRN 07/11/23 07/11/23 Penicillin V Potassium [Pen Vee K] 500 mg PO QID 07/11/23 07/11/23 Allergies Allergy/AdvReac Type Severity Reaction Status Date / Time codeine AdvReac Nausea & Verified 07/11/23 21:24 Vomiting Review of Systems ROS Statement: Those systems with pertinent positive or pertinent negative responses have been documented in the HPI. ROS Other: All systems not noted in ROS Statement are negative. Past Medical History Past Medical History: GERD/Reflux Additional Past Medical History / Comment(s): bile leak, Hiatal Hernia. History of Any Multi-Drug Resistant Organisms: MRSA Date of last positivie culture/infection: 2012 MDRO Source:: abd Past Surgical History: Section, Cholecystectomy, Tubal Ligation Additional Past Surgical History / Comment(s): ERCP with bile leak, Liver biopsy, EGD. 2 c-sections Past Anesthesia/Blood Transfusion Reactions: Motion Sickness Past Psychological History: No Psychological Hx Reported Smoking Status: Current every day smoker Past Alcohol Use History: Occasional Past Drug Use History: None Reported - Past Family History Father Family Medical History: Cancer Additional Family Medical History / Comment(s): Lung Cancer General Exam Limitations: no limitations General appearance: alert, anxious Eye exam: Present: normal appearance, periorbital swelling (Left), periorbital tenderness (Left) Pupils: Present: normal accommodation ENT exam: Present: normal exam, mucous membranes moist (No abscesses ), other (Multiple dental caries noted. There is swelling noted of the upper lip. There is erythema and edema noted of left cheek and periorbital area.) Neck exam: Present: normal inspection. Absent: tenderness, meningismus, lymphadenopathy Respiratory exam: Present: normal lung sounds bilaterally. Absent: respiratory distress, wheezes, rales, rhonchi, stridor Cardiovascular Exam: Present: regular rate, normal rhythm, normal heart sounds. Absent: systolic murmur, diastolic murmur, rubs, gallop, clicks Neurological exam: Present: alert, oriented X3, CN II-XII intact Psychiatric exam: Present: normal affect, normal mood Skin exam: Present: warm, dry, intact, normal color. Absent: rash Course Vital Signs 07/11/23 19:42 Temperature 97.9 F Pulse Rate 81 Respiratory 16 Rate Blood Pressure 122/83 O2 Sat by Pulse 100 Oximetry Medical Decision Making - Medical Decision Making Was pt. sent in by a medical professional or institution (, PA, DOUBLE END TENONER OPERATOR, urgent care, hospital, or penitentiary...) When possible be specific @ -No Did you speak to anyone other than the patient for history (EMS, parent, family, police, friend...)? What history was obtained from this source @ -No Did you review nursing and triage notes (agree or disagree)? Why? @ -I reviewed and agree with nursing and triage notes Were old charts reviewed (outside hosp., previous admission, EMS record, old EKG, old radiological studies, urgent care reports/EKG's, penitentiary records)? Report findings @ -Yes, patient was seen here on 07/10/23 and received IV antibiotics. She also received a facial CT which showed inflammatory changes of the left infraorbital and left maxillary soft tissues. There is also cervical lymphadenopathy. Her pain and swelling were decreased so she was discharged to continue the penicillin from urgent care. Differential Diagnosis (chest pain, altered mental status, abdominal pain women, abdominal pain men, vaginal bleeding, weakness, fever, dyspnea, syncope, he adache, dizziness, GI bleed, back pain, seizure, CVA, palpatations, mental health, musculoskeletal)? @ -Dental infection, dental abscess, cellulitis, orbital cellulitis, angioedema EKG interpreted by me (3pts min.). @ -None X-rays interpreted by me (1pt min.). @ -None done CT interpreted by me (1pt min.). @ -None done U/S interpreted by me (1pt. min.). @ -None done What testing was considered but not performed or refused? (CT, X-rays, U/S, labs)? Why? @ -None What meds were considered but not given or refused? Why? @ -None Did you discuss the management of the patient with other professionals (professionals i.e. DrOksana, PA, DOUBLE END TENONER OPERATOR, lab, RT, psych nurse, director social service, service clerk, teacher, chief investment officer, case management specialist)? Give summary @ -Yes, I discussed this case with Dr. Pro for observation admission. Was smoking cessation discussed for >3mins.? @ -No Was critical care preformed (if so, how long)? @ -No Were there social determinants of health that impacted care today? How? (Homelessness, low income, unemployed, alcoholism, drug addiction, transportation, low edu. Level, literacy, decrease access to med. care, prison, rehab)? @ -No Was there de-escalation of care discussed even if they declined (Discuss DNR or withdrawal of care, Hospice)? DNR status @ -No What co-morbidities impacted this encounter? (DM, HTN, Smoking, COPD, CAD, Can cer, CVA, ARF, Chemo, Hep., AIDS, mental health diagnosis, sleep apnea, morbid obesity)? @ -None Was patient admitted / discharged? Hospital course, mention meds given and route, prescriptions, significant lab abnormalities, going to OR and other pertinent info. @ -Admitted. On exam patient had exquisitely tender left periorbital region. Patient received IV Unasym, Decadron, morphine, Zofran and 1 L of IV fluids in the ER. I reviewed that patient's last ER visit and the CT obtained showed left periorbital/maxillary sinus inflammatory changes. Patient will be admitted for observation and IV antibiotics. I discussed this case with Dr. Pro and he recommended observation admission for IV antibiotics. I discussed her care plan with the patient and she expressed understanding and agreement. Undiagnosed new problem with uncertain prognosis? @ -No Drug Therapy requiring intensive monitoring for toxicity (Heparin, Nitro, Insulin, Cardizem)? @ -No Were any procedures done? @ -No Diagnosis/symptom? @ -Dental infection Acute, or Chronic, or Acute on Chronic? @ -Acute Uncomplicated (without systemic symptoms) or Complicated (systemic symptoms)? @ -Complicated Side effects of treatment? @ -No Exacerbation, Progression, or Severe Exacerbation? @ -No Poses a threat to life or bodily function? How? (Chest pain, [place], [place], pneumonia, PE, COPD, DKA, ARF, appy, cholecystitis, CVA, Diverticulitis, Homicidal, Suici flora, threat to staff... and all critical care pts) @ -No - Lab Data Result diagrams: 07/11/23 20:53 Lab Results 07/11/23 07/11/23 Range/Units 20:53 20:53 Sodium 150 H (137-145) mmol/L Potassium 3.6 (3.5-5.1) mmol/L Chloride 115 H (98-107) mmol/L Carbon Dioxide 20 L (22-30) mmol/L Anion Gap 15 mmol/L BUN 11 (7-17) mg/dL Creatinine 0.58 (0.52-1.04) mg/dL Est GFR (CKD-EPI)AfAm >90 (>60 ml/min/1.73 sqM) Est GFR (CKD-EPI)NonAf >90 (>60 ml/min/1.73 sqM) Glucose 85 (74-99) mg/dL Plasma Lactic Acid Carlos Eduardo 1.1 (0.7-2.0) mmol/L Calcium 6.8 L (8.4-10.2) mg/dL Total Bilirubin 0.3 (0.2-1.3) mg/dL AST 52 H (14-36) U/L ALT 50 H (4-34) U/L Alkaline Phosphatase 63 (38-126) U/L Total Protein 5.8 L (6.3-8.2) g/dL Albumin 3.0 L (3.5-5.0) g/dL Disposition Clinical Impression: Dental infection Disposition: ADMITTED IP TO THIS [facility] Condition: Stable Referrals: None,Stated [Primary Care Provider] - 1-2 days Time of Disposition: 20:54
[2023-07-11] MEDS ORDERED: NALOXONE 0.4 MG/ML 1 ML VIAL IV PRN (20:59)
[2023-07-11] MEDS: SODIUM CHLORIDE 0.9% 1,000 ML IV SCH (21:11)
[2023-07-11] MEDS: KETOROLAC 15 MG/ML 1 ML VIAL IVP PRN (21:14)
[2023-07-11 21:38] LABS: ALT 50 U/L (4-34); AST 52 U/L (14-36); African American GFR (CKD) >90 (>60 ml/min/1.73 sqM); Alkaline Phosphatase 63 U/L (38-126); Anion Gap 15 mmol/L; Blood Urea Nitrogen 11 mg/dL (7-17); Calcium 6.8 mg/dL (8.4-10.2); Carbon Dioxide 20 mmol/L (22-30); Chloride 115 mmol/L (98-107); Glucose 85 mg/dL (74-99); Non-African American GFR(CKD) >90 (>60 ml/min/1.73 sqM); Potassium 3.6 mmol/L (3.5-5.1); Sodium 150 mmol/L (137-145); Total Bilirubin 0.3 mg/dL (0.2-1.3); Total Protein 5.8 g/dL (6.3-8.2)
[2023-07-11 22:17] LABS: HCT 30.7 % (34.0-46.0); MCH 33.7 pg (25.0-35.0); MCHC 33.8 g/dL (31.0-37.0); MCV 99.8 fL (80.0-100.0); Mean Platelet Volume 7.9; Platelet Count 240 k/uL (150-450); RBC 3.07 m/uL (3.80-5.40); RDW 13.1 % (11.5-15.5); WBC 15.6 k/uL (3.8-10.6)
[2023-07-11 22:35] LABS: HGB 10.4 gm/dL (11.4-16.0)
[2023-07-11] MEDS ORDERED: NICOTINE 14MG/24HR PATCH TRANSDERM STA (22:42)
[2023-07-11 23:04] VITALS: RESP 16
--- NOTE | 2023-07-12 02:53 | P.HPIM ---
History of Present Illness H&P Date: 07/12/23 Patient is a 38-year-old female with no known PMH who had presented to the emergency room left facial pain and swelling. Patient notes that she initially started having these symptoms 2 days ago and was seen at an urgent care center where she was given oral penicillin prescription. She notes however that her symptoms continued to worsen for which she was seen in the emergency room on 07/10 when she was given a dose of Unasyn and advised to continue taking the penicillin. She reports however that the Unasyn dose did initially improve her symptoms for several hours but then they acutely worsen earlier today which prompted her to come back to the emergency room. She reported left facial pain and swelling which she attributes to multiple dental caries. She reports being in the process of getting all of her teeth extracted. Denied experiencing headache, visual disturbances, or difficulty swallowing. Also denied chest pain, shortness of breath, nausea, vomiting, abdominal pain, diarrhea. Laboratory evaluation in the emergency room was remarkable for leukocytosis of 15.6, hemoglobin 10.4, sodium 150, chloride 115, CO2 20, AST 52, ALT 50, now been 3.0. ED documentation reviewed and case discussed with ED provider. Review of systems: Pertinent positives and negatives as discussed in HPI, a complete review of systems was performed and all other systems are negative. Physical examination: Vital signs reviewed General: non toxic, no distress, appears at stated age, normal weight Derm: no unusual rashes/lesions, warm Head: atraumatic, normocephalic, symmetric Eyes: EOMI, no lid lag, anicteric sclera, pupils equal round reactive to light ENT: Nose and ears atraumatic Neck: No cervical lymphadenopathy, trachea midline, supple Mouth: no lip lesion, mucus membranes moist, poor dentition with multiple dental caries, left mild facial swelling overlying the upper molars Cardiovascular: S1S2 reg, no murmur, positive dorsalis pedis pulse bilateral, no edema Lungs: CTA bilateral, no rhonchi, no rales, no accessory muscle use Abdominal: soft, nontender to palpation, no guarding Ext: muscle strength 5 out of 5 in all 4 extremities grossly, no gross muscle atrophy, no contractures, Neuro: CN II-XI grossly intact, no gross focal neuro deficits Psych: Alert, oriented, appropriate affect Assessment: Sepsis secondary to periodontal abscess Hyperchloremic hypernatremia, suspected due to dehydration Imaging: None performed Data Review: Laboratory evaluation in the emergency room was remarkable for leukocytosis of 15.6, hemoglobin 10.4, sodium 150, chloride 115, CO2 20, AST 52, ALT 50, now been 3.0. Plan: Continue Unasyn IV for now IV fluids with normal saline 120 mL per hour Monitor BMP and CBC DVT prophylaxis: Lovenox Subq The patient is admitted with an anticipated greater than 2 midnight stay for evaluation of sepsis dental abscess CODE STATUS: Full Code Discussed with: Patient Anticipated discharge place: Home Past Medical History Past Medical History: GERD/Reflux Additional Past Medical History / Comment(s): bile leak, Hiatal Hernia. History of Any Multi-Drug Resistant Organisms: MRSA Date of last positivie culture/infection: 2012 MDRO Source:: abd Past Surgical History: Section, Cholecystectomy, Tubal Ligation Additional Past Surgical History / Comment(s): ERCP with bile leak, Liver biopsy, EGD. 2 c-sections Past Anesthesia/Blood Transfusion Reactions: Motion Sickness Past Psychological History: No Psychological Hx Reported Smoking Status: Current every day smoker Past Alcohol Use History: Occasional Additional Past Alcohol Use History / Comment(s): Has been smoking for 15 yrs, 3/4 PPD. Past Drug Use History: None Reported Additional Drug Use History / Comment(s): Uses Marijuana once in awhile. Aware no use 24 hrs prior to procedure. - Past Family History Father Family Medical History: Cancer Additional Family Medical History / Comment(s): Lung Cancer Medications and Allergies Home Medications Medication Instructions Recorded Confirmed Type Ibuprofen [Motrin] 800 mg PO Q8H PRN 07/11/23 07/11/23 History Penicillin V Potassium [Pen Vee K] 500 mg PO QID 07/11/23 07/11/23 History Allergies Allergy/AdvReac Type Severity Reaction Status Date / Time codeine AdvReac Nausea & Verified 07/11/23 21:24 Vomiting Physical Exam Vitals: Vital Signs Temp Pulse Pulse Resp BP BP Pulse Ox 07/11/23 22:30 98.2 F 107 H 16 125/81 98 07/11/23 22:13 103 H 20 134/82 100 07/11/23 19:42 97.9 F 81 16 122/83 100 Intake and Output 07/11/23 07/11/23 07/12/23 14:59 22:59 06:59 Other: Voiding Method Toilet Weight 73.936 kg Results CBC & Chem 7: 07/11/23 20:53 07/11/23 20:53 Labs: Abnormal Lab Results - Last 24 Hours (Table) 07/11/23 07/11/23 Range/Units 20:53 20:53 WBC 15.6 H (3.8-10.6) k/uL RBC 3.07 L (3.80-5.40) m/uL Hgb 10.4 L D (11.4-16.0) gm/dL Hct 30.7 L (34.0-46.0) % Sodium 150 H (137-145) mmol/L Chloride 115 H (98-107) mmol/L Carbon Dioxide 20 L (22-30) mmol/L Calcium 6.8 L (8.4-10.2) mg/dL AST 52 H (14-36) U/L ALT 50 H (4-34) U/L Total Protein 5.8 L (6.3-8.2) g/dL Albumin 3.0 L (3.5-5.0) g/dL Thrombosis Risk Factor Assmnt - Choose All That Apply Any of the Below Risk Factors Present?: Yes Each Factor Represents 1 point: Obesity (BMI >25) Other Risk Factors: No Other congenital or acquired thrombophilia - If yes, enter type in comment: No Thrombosis Risk Factor Assessment Total Risk Factor Score: 1 Thrombosis Risk Factor Assessment Level: Low Risk
[2023-07-12] MEDS: KETOROLAC 15 MG/ML 1 ML VIAL IVP PRN (04:54)
[2023-07-12] MEDS ORDERED: AMPICILLIN-SULBACTAM 3 GM in SODIUM CHLORIDE 0.9% 100 ML IVPB SCH (05:00)
[2023-07-12 05:39] LABS: HCT 35.3 % (34.0-46.0); HGB 11.6 gm/dL (11.4-16.0); MCH 33.4 pg (25.0-35.0); MCHC 32.8 g/dL (31.0-37.0); MCV 101.6 fL (80.0-100.0); Macrocytosis Slight; Mean Platelet Volume 7.6; Platelet Count 285 k/uL (150-450); RBC 3.48 m/uL (3.80-5.40); RDW 12.7 % (11.5-15.5); WBC 13.3 k/uL (3.8-10.6)
[2023-07-12 05:48] LABS: African American GFR (CKD) >90 (>60 ml/min/1.73 sqM); Anion Gap 6 mmol/L; Blood Urea Nitrogen 14 mg/dL (7-17); Carbon Dioxide 22 mmol/L (22-30); Chloride 108 mmol/L (98-107); Glucose 101 mg/dL (74-99); Non-African American GFR(CKD) >90 (>60 ml/min/1.73 sqM); Potassium 4.6 mmol/L (3.5-5.1); Sodium 136 mmol/L (137-145)
[2023-07-12 07:54] VITALS: BP 120/81; PULSE 86; TEMP 97.9
[2023-07-12] MEDS: SODIUM CHLORIDE 0.9% 1,000 ML IV SCH (08:57)
[2023-07-12] MEDS ORDERED: ENOXAPARIN 40 MG/0.4 ML SYRINGE SQ SCH (09:00)
--- NOTE | 2023-07-12 09:47 | P.DS ---
Providers Date of admission: 07/11/23 21:45 Expected date of discharge: 07/12/23 Attending physician: Kary Pro MD Primary care physician: Stated None Hospital Course: Patient is a 38-year-old female with no known PMH who had presented to the emergency room left facial pain and swelling. Patient notes that she initially started having these symptoms 2 days ago and was seen at an urgent care center where she was given oral penicillin prescription. She notes however that her symptoms continued to worsen for which she was seen in the emergency room on 07/10 when she was given a dose of Unasyn and advised to continue taking the pen icillin. She reports however that the Unasyn dose did initially improve her symptoms for several hours but then they acutely worsen earlier today which prompted her to come back to the emergency room. She reported left facial pain and swelling which she attributes to multiple dental caries. She reports being in the process of getting all of her teeth extracted. Denied experiencing headache, visual disturbances, or difficulty swallowing. Also denied chest pain, shortness of breath, nausea, vomiting, abdominal pain, diarrhea. Laboratory evaluation in the emergency room was remarkable for leukocytosis of 15.6, hemoglobin 10.4, sodium 150, chloride 115, CO2 20, AST 52, ALT 50, now been 3.0. CT face was done on 07/10 which showed dental cavities, inflammatory changes involving left infraorbital and left maxillary soft tissues. Patient was started on Unasyn and admitted for further management of symptoms. 07/12 Patient was seen and examined. She reports significant improvement in her dental pain. No fever or chills. It [birth year] her birthday today and she would like to go home. Her most recent BP 120/81 HR 86. WBC count improved to 13.3. CBC shows RBC count 3.48, MCV 101.6. BMP Na 136, Cl 108, glucose 101, Ca 8. Patient will be discharged today as per her request. We will start Augmentin 1 tab PO BID x 7 days and Labolt PRN for pain. Advised to continue Ibuprofen as well. Advised to call Dr. Hassan's office tomorrow for an appointment NAYA. Patient verablized understading of the plan. Vital signs reviewed General: non toxic, no distress, appears at stated age, normal weight Derm: no unusual rashes/lesions, warm Head: atraumatic, normocephalic, symmetric Eyes: EOMI, no lid lag, anicteric sclera ENT: Nose and ears atraumatic Neck: No cervical lymphadenopathy, trachea midline, supple Mouth: no lip lesion, mucus membranes moist Cardiovascular: S1S2 reg, no murmur, no edema Lungs: CTA bilateral, no rhonchi, no rales, no accessory muscle use Ext: muscle strength 5 out of 5 in all 4 extremities grossly, no gross muscle atrophy, no contractures, Neuro: no gross focal neuro deficits Psych: Alert, oriented, appropriate affect Discharge Diagnosis: Sepsis secondary to periodontal abscess Hyperchloremic hypernatremia, suspected due to dehydration Macrocytosis This complex discharge took 35 minutes to complete. Patient Condition at Discharge: Stable Plan - Discharge Summary Discharge Rx Participant: Yes New Discharge Prescriptions: New HYDROcodone/APAP 5-325MG [Labolt 5-325] 1 tab PO Q4HR PRN 3 Days #18 tab PRN Reason: Pain Amoxic-Pot Clav 875-125Mg [Augmentin 875-125] 1 tab PO Q12HR 7 Days #14 tab Continue Ibuprofen [Motrin] 800 mg PO Q8H PRN PRN Reason: Pain Discontinued Penicillin V Potassium [Pen Vee K] 500 mg PO QID Discharge Medication List Ibuprofen [Motrin] 800 mg PO Q8H PRN 07/11/23 [History] Amoxic-Pot Clav 875-125Mg [Augmentin 875-125] 1 tab PO Q12HR 7 Days #14 tab 07/12/23 [Rx] HYDROcodone/APAP 5-325MG [Labolt 5-325] 1 tab PO Q4HR PRN 3 Days #18 tab 07/12/23 [Rx] Follow up Appointment(s)/Referral(s): Beltran Hassan DDS [STAFF PHYSICIAN] - 1-2 Days None,Stated [Primary Care Provider] - 1-2 days Activity/Diet/Wound Care/Special Instructions: Follow up with Dr. Hassan within 1-2 days of discharge. Come back for fevers > 100.4 not relieved with Tylenol, Intractable pain, N/V, dizziness, chest pain, shortness of breath, palpitations. Discharge Disposition: HOME SELF-CARE
== END 2023-07-12 11:07 | disposition home or self-care (01) ==
LOC: EC 19:35 → INTOOBSV 21:45 → 5NMEDONC 21:45 → UNDODISIN 07-12 11:07
PROVIDERS: ADMIT Internal Medicine; ATTEND Internal Medicine
DX: A41.9 Sepsis, unspecified organism (principal); K05.219 Aggressive periodontitis, localized, unspecified severity; E87.0 Hyperosmolality and hypernatremia; D75.89 Other specified diseases of blood and blood-forming organs; K21.9 Gastro-esophageal reflux disease without esophagitis; F17.200 Nicotine dependence, unspecified, uncomplicated; Z88.5 Allergy status to narcotic agent
CPT/HCPCS: 96376 ×2; 96366; 96372; 96365; 96375; 99285; 36415; 80053; 80048; 83605; 85027 ×2; 87040; G0378 ×2; S4990; J1100; J2405; J1650; J2270; J0295 ×2; J1885 ×2; 96361

== ENCOUNTER 2023-12-02 22:03 | Emergency (ER) | payer OTHER ==
--- NOTE | 2023-12-02 22:36 | ED ---
URI HPI - General Chief Complaint: Upper Respiratory Infection Stated Complaint: Sore throat, congestion, cough Time Seen by Provider: 12/02/23 22:08 Source: patient, RN notes reviewed Mode of arrival: ambulatory Limitations: no limitations - History of Present Illness Initial Comments: 38-year-old female presents emergency department complaint sore throat cough congestion. Patient's daughter has similar symptoms patient states that she may have had a fever. Patient states she is achy just does not feel well no GI symptoms no other complaints. - Related Data Home Medications Medication Instructions Recorded Confirmed Ibuprofen [Motrin] 800 mg PO Q8H PRN 07/11/23 07/11/23 Previous Rx's Medication Instructions Recorded Amoxic-Pot Clav 875-125Mg 1 tab PO Q12HR 7 Days #14 tab 07/12/23 [Augmentin 875-125] HYDROcodone/APAP 5-325MG [[place] 1 tab PO Q4HR PRN 3 Days #18 tab 07/12/23 5-325] Allergies Allergy/AdvReac Type Severity Reaction Status Date / Time codeine AdvReac Nausea & Verified 07/11/23 21:24 Vomiting Review of Systems ROS Statement: Those systems with pertinent positive or pertinent negative responses have been documented in the HPI. ROS Other: All systems not noted in ROS Statement are negative. Past Medical History Past Medical History: GERD/Reflux Additional Past Medical History / Comment(s): bile leak, Hiatal Hernia. History of Any Multi-Drug Resistant Organisms: MRSA Date of last positivie culture/infection: 2012 MDRO Source:: abd Past Surgical History: Section, Cholecystectomy, Tubal Ligation Additional Past Surgical History / Comment(s): ERCP with bile leak, Liver biopsy, EGD. 2 c-sections Past Anesthesia/Blood Transfusion Reactions: Motion Sickness Past Psychological History: No Psychological Hx Reported Smoking Status: Current every day smoker Past Alcohol Use History: Occasional Past Drug Use History: Marijuana - Past Family History Father Family Medical History: Cancer Additional Family Medical History / Comment(s): Lung Cancer General Exam Limitations: no limitations General appearance: alert, in no apparent distress Head exam: Present: atraumatic, normocephalic, normal inspection Eye exam: Present: normal appearance, PERRL, EOMI. Absent: scleral icterus, conjunctival injection, periorbital swelling ENT exam: Present: normal exam, normal oropharynx, mucous membranes moist, TM's normal bilaterally Neck exam: Present: normal inspection, full ROM. Absent: tenderness, meningismus, lymphadenopathy Respiratory exam: Present: normal lung sounds bilaterally. Absent: respiratory distress, wheezes, rales, rhonchi, stridor Cardiovascular Exam: Present: regular rate, normal rhythm, normal heart sounds. Absent: systolic murmur, diastolic murmur, rubs, gallop, clicks GI/Abdominal exam: Present: soft, normal bowel sounds. Absent: distended, tenderness, guarding, rebound, rigid Neurological exam: Present: alert, oriented X3, CN II-XII intact Skin exam: Present: warm, dry, intact, normal color. Absent: rash Course Vital Signs 12/02/23 22:06 Temperature 98 F Pulse Rate 105 H Respiratory 22 Rate Blood Pressure 124/78 O2 Sat by Pulse 97 Oximetry Medical Decision Making - Medical Decision Making Was pt. sent in by a medical professional or institution (, PA, SALES SERVICE REPRESENTATIVE, urgent care, hospital, or correction...) When possible be specific @ -No Did you speak to anyone other than the patient for history (EMS, parent, family, police, friend...)? What history was obtained from this source @ -No Did you review nursing and triage notes (agree or disagree)? Why? @ -I reviewed and agree with nursing and triage notes Were old charts reviewed (outside hosp., previous admission, EMS record, old EKG, old radiological studies, urgent care reports/EKG's, correction records)? Report findings @ -No old charts were reviewed Differential Diagnosis (chest pain, altered mental status, abdominal pain women, abdominal pain men, vaginal bleeding, weakness, fever, dyspnea, syncope, headache, dizziness, GI bleed, back pain, seizure, CVA, palpatations, mental health, musculoskeletal)? @ -COVID 19, RSV, influenza, pneumonia, acute bronchitis, URI, this list is not all inclusive EKG interpreted by me (3pts min.). @ -None X-rays interpreted by me (1pt min.). @ -None done CT interpreted by me (1pt min.). @ -None done U/S interpreted by me (1pt. min.). @ -None done What testing was considered but not performed or refused? (CT, X-rays, U/S, labs)? Why? @ -None What meds were considered but not given or refused? Why? @ -None Did you discuss the management of the patient with other professionals (professionals i.e. , PA, SALES SERVICE REPRESENTATIVE, lab, RT, psych nurse, social sciences department chair, schedule checker, teacher, disabilities services officer, immigration case worker)? Give summary @ -No Was smoking cessation discussed for >3mins.? @ -No Was critical care preformed (if so, how long)? @ -No Were there social determinants of health that impacted care today? How? (Homelessness, low income, unemployed, alcoholism, drug addiction, transportation, low edu. Level, literacy, decrease access to med. care, nursing home, rehab)? @ -No Was there de-escalation of care discussed even if they declined (Discuss DNR or withdrawal of care, Hospice)? DNR status @ -No What co-morbidities impacted this encounter? (DM, HTN, Smoking, COPD, CAD, Cancer, CVA, ARF, Chemo, Hep., AIDS, mental health diagnosis, sleep apnea, morbid obesity)? @ -None Was patient admitted / discharged? Hospital course, mention meds given and route, prescriptions, significant lab abnormalities, going to OR and other pertinent info. @ -Discharge patient had viral swab, strep swab which were both negative. Patient is a viral URI patient is in no signs distress and discharged in stable condition supportive treatment discussed. Undiagnosed new problem with uncertain prognosis? @ -No Drug Therapy requiring intensive monitoring for toxicity (Heparin, Nitro, Insulin, Cardizem)? @ -No Were any procedures done? @ -No Diagnosis/symptom? @ -Viral URI Acute, or Chronic, or Acute on Chronic? @ -Acute Uncomplicated (without systemic symptoms) or Complicated (systemic symptoms)? @ -Uncomplicated Side effects of treatment? @ -No Exacerbation, Progression, or Severe Exacerbation? @ -No Poses a threat to life or bodily function? How? (Chest pain, [place], AL, pneumonia, PE, COPD, DKA, ARF, appy, cholecystitis, CVA, Diverticulitis, Homicidal, Suicidal, threat to staff... and all critical care pts) @ -No - Lab Data Lab Results 12/02/23 12/02/23 Range/Units 22:41 22:41 Influenza Type A (PCR) Not Detected (Not Detectd) Influenza Type B (PCR) Not Detected (Not Detectd) RSV (PCR) Not Detected (Not Detectd) SARS-CoV-2 (PCR) Not Detected (Not Detectd) Group A Strep (PCR) NOT DETECTED (Not Detectd) Disposition Clinical Impression: Acute upper respiratory infection Disposition: HOME SELF-CARE Condition: Stable Instructions (If sedation given, give patient instructions): Upper Respiratory Infection (ED) Additional Instructions: Please return to the Emergency Department if symptoms worsen or any other concerns. Is patient prescribed a controlled substance at d/c from ED?: No Referrals: None,Stated [Primary Care Provider] - 1-2 days Time of Disposition: 23:39
[2023-12-03 00:32] VITALS: BP 120/76; PULSE 99; RESP 20; TEMP 97.9
== END 2023-12-02 23:59 | disposition home or self-care (01) ==
LOC: EC 22:03
DX: J06.9 Acute upper respiratory infection, unspecified (principal); F17.200 Nicotine dependence, unspecified, uncomplicated; Z88.5 Allergy status to narcotic agent
CPT/HCPCS: 87636; 87651; 99283